=== PATIENT | female | born 1935 | race Caucasian/White ===

== ENCOUNTER 2018-09-03 15:24 | Inpatient (IN) | payer MEDICARE ==
[~2018-09-03 15:24] MED LIST: ELIQUIS 2.5 MG TABLET ONE; NORCO 5/325 MG ONE; TENORMIN 50 MG ONE; TYLENOL EXTRA STRENGTH 500 MG ONE; Vasotec 10 MG ONE
[2018-09-03] MEDS ORDERED: Aplisol ID ONE (16:08)
[2018-09-03 17:26] LABS: ANION GAP 13.5 MEQ/L (5-15); BLOOD UREA NITROGEN 17 mg/dL (7-17); CHLORIDE 103 mmol/L (98-107); Calcium 8.9 mg/dL (8.4-10.2); Carbon Dioxide 27 mmol/L (22-30); Creatinine 1 0.65 mg/dL (0.52-1.04); Glucose 87 mg/dL (74-106); Potassium 3.7 mmol/L (3.5-5.1); SODIUM 140 mmol/L (137-145)
[2018-09-03] MEDS ORDERED: PROVENTIL COMMON CANISTER IH PRN (18:20)
[2018-09-03] MEDS: TYLENOL EXTRA STRENGTH 500 MG PO SCH (19:24)
[2018-09-03] MEDS ORDERED: Vasotec 10 MG ONE (21:24)
[2018-09-03] MEDS: ELIQUIS 2.5 MG TABLET PO SCH (21:50)
[2018-09-03] MEDS: Vasotec 10 MG PO SCH (21:51)
[2018-09-03] MEDS: TENORMIN 50 MG PO SCH (21:51)
[2018-09-03] MEDS: NORCO 5/325 MG PO PRN (22:54)
[2018-09-04] MEDS: TYLENOL EXTRA STRENGTH 500 MG PO SCH ×4 (01:51→17:37)
--- NOTE | 2018-09-04 09:09 | PCM.HP ---
History of Present Illness - Chief Complaint Chief Complaint: DECONDITIONING DT HIP FX History of Present Illness: is a 83 year old female.had fracture right hip s/p ORIF, came for rehab. - Review of Systems Constitutional: No Fever, No Chills Eyes: No Symptoms Ears, Nose, & Throat: No Symptoms Respiratory: No Cough, No Short Of Breath Cardiac: No Chest Pain, No Edema, No Syncope Abdominal/Gastrointestinal: No Abdominal Pain, No Nausea, No Vomiting, No Diarrhea Genitourinary Symptoms: No Dysuria Musculoskeletal: No Back Pain, No Neck Pain Skin: No Rash Neurological: No Dizziness, No Focal Weakness, No Sensory Changes Psychological: No Symptoms Endocrine: No Symptoms Hematologic/Lymphatic: No Symptoms Immunological/Allergic: No Symptoms Medications & Allergies Home Medications: Home Medication List Amlodipine Besylate 5 mg PO BID 09/03/18 [History Confirmed 09/03/18] Apixaban [Eliquis] 5 mg PO BID 09/03/18 [History Confirmed 09/03/18] Aspirin [Aspirin EC] 81 mg PO DAILY 09/03/18 [History Confirmed 09/03/18] Atenolol 50 mg [Tenormin 50 mg] 50 mg PO BID 09/03/18 [History Confirmed 09/03/18] Atorvastatin Calcium 80 mg PO DAILY 09/03/18 [History Confirmed 09/03/18] Enalapril Maleate [Vasotec] 10 mg PO BID 09/03/18 [History Confirmed 09/03/18] Esomeprazole Magnesium [Nexium] 40 mg PO DAILY 09/03/18 [History Confirmed 09/03] Allergies/Adverse Reactions: Allergies Allergy/AdvReac Type Severity Reaction Status Date / Time No Known Drug Allergies Allergy Unverified 09/03/18 18:07 - Past Medical History Neurological History: No Pertinent History Cardiac History: Arrhythmia, Coronary Artery Disease, High Cholesterol, Hypertension Respiratory History: No Pertinent History Endocrine Medical History: No Pertinent History Musculoskelatal History: No Pertinent History Comment: HX OF CORONARY STENT PLACEMENT. RECENT DX OF COLON CA WITH PARTIAL COLECTOMY 07/12/18 FOLLOWED BY [facility]. - Female History Are you now?: No - Past Surgical History Past Surgical History: Yes Musculskeletal Surgical Hx: Orthopedic Surgery Female Surgical History: Hysterectomy Other Surgical History: BOWEL RESECTION, BUNION RIGHT, RIGHT HIP - Social History Smoking Status: Never smoker Alcohol: None - Physical Exam Vital Signs: Vital Signs - 24 hr Temp Pulse Resp BP BP Pulse Ox 09/04/18 08:00 98.1 F 68 18 145/75 95 09/03/18 21:51 90 134/76 09/03/18 21:03 91 H 17 94 L 09/03/18 20:00 98.3 F 90 16 134/76 95 09/03/18 16:14 97.8 F 80 18 134/77 92 L General Appearance: no apparent distress, alert Neurologic Exam: alert, 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, cooperative, normal mood/affect, nml cerebellar function, nml station & gait, sensation nml, No motor deficits Eye Exam: PERRL/EOMI, eyes nml inspection Ears, Nose, Throat Exam: normal ENT inspection, TMs normal, pharynx normal, moist mucous membranes Neck Exam: normal inspection, non-tender, supple, full range of motion Respiratory Exam: normal breath sounds, lungs clear, No respiratory distress Cardiovascular Exam: regular rate/rhythm, normal heart sounds, normal peripheral pulses Gastrointestinal/Abdomen Exam: soft, normal bowel sounds, No tenderness, No mass Back Exam: normal inspection, normal range of motion, No CVA tenderness, No vertebral tenderness Extremity Exam: normal inspection, normal range of motion, pelvis stable Skin Exam: normal color, warm, dry, No rash Lymphatic Exam: No adenopathy Results - Labs Lab/Micro Results: Lab Results-Last 24 Hours 09/03/18 Range/Units 17:11 Sodium 140 (137-145) mmol/L Potassium 3.7 (3.5-5.1) mmol/L Chloride 103 (98-107) mmol/L Carbon Dioxide 27 (22-30) mmol/L Anion Gap 13.5 (5-15) MEQ/L BUN 17 (7-17) mg/dL Creatinine 0.65 (0.52-1.04) mg/dL Estimated GFR > 60.0 ML/MIN Glucose 87 (74-106) mg/dL Calcium 8.9 (8.4-10.2) mg/dL - Other Procedures and Tests Respiratory Therapy 09/03/18 22:05 Respiratory Therapy Assessment DAILY 09/03/18 22:12 Peak Expiratory Flow Rate ONCE Assessment/Plan (1) Hip fracture requiring operative repair Current Visit: Yes Status: Acute Qualifiers: Fracture type: closed Laterality: right Fracture healing: with routine healing Code(s): S72.009A - FRACTURE OF UNSP PART OF NECK OF UNSP FEMUR, INIT
[2018-09-04] MEDS ORDERED: NORVASC 5 MG PO SCH (10:00)
[2018-09-04] MEDS ORDERED: NON-FORMULARY ITEM (Esomeprazole Magnesium [Nexium] 40 MG) PO SCH (10:00)
[2018-09-04] MEDS ORDERED: NON-FORMULARY ITEM (Atorvastatin Calcium [Atorvastatin Calcium] 80 MG) PO SCH (10:00)
[2018-09-04] MEDS: NORCO 5/325 MG PO PRN ×2 (10:19→20:15)
[2018-09-04] MEDS: ZOCOR 20MG PO SCH (10:19)
[2018-09-04] MEDS: Vasotec 10 MG PO SCH ×2 (10:20→21:37)
[2018-09-04] MEDS: ECOTRIN 81 MG PO SCH (10:20)
[2018-09-04] MEDS: TENORMIN 50 MG PO SCH ×2 (10:20→21:37)
[2018-09-04] MEDS: Protonix 40MG Tablet PO SCH (10:20)
[2018-09-04] MEDS: ELIQUIS 2.5 MG TABLET PO SCH ×2 (10:20→21:37)
[2018-09-04] MEDS: Vitamin C 500 MG PO SCH (10:20)
[2018-09-04] MEDS: VITAMIN D PO SCH (10:20)
[2018-09-05] MEDS: TYLENOL EXTRA STRENGTH 500 MG PO SCH ×5 (00:43→23:55)
[2018-09-05] MEDS ORDERED: Venofer 100 MG/5 ML IV SCH (10:00)
[2018-09-05] MEDS: VITAMIN D PO SCH (10:18)
[2018-09-05] MEDS: TENORMIN 50 MG PO SCH ×2 (10:18→23:07)
[2018-09-05] MEDS: ECOTRIN 81 MG PO SCH (10:18)
[2018-09-05] MEDS: Protonix 40MG Tablet PO SCH (10:21)
[2018-09-05] MEDS: ELIQUIS 2.5 MG TABLET PO SCH ×2 (10:21→23:08)
[2018-09-05] MEDS: Vasotec 10 MG PO SCH ×2 (10:21→23:08)
[2018-09-05] MEDS: ZOCOR 20MG PO SCH (10:21)
[2018-09-05] MEDS: Venofer 100 MG/5 ML*** 300 MG in Sodium Chloride 0.9% 250 ML 250 ML IV SCH (10:41)
[2018-09-05] MEDS: Vitamin C 500 MG PO SCH (10:41)
--- NOTE | 2018-09-05 13:38 | PCM.NOTE ---
Date and Time: 09/05/18 6845 Subjective Assessment: doing ok - Review of Systems Constitutional: No Fever, No Chills Eyes: No Symptoms Ears, Nose, & Throat: No Symptoms Respiratory: No Cough, No Short Of Breath Cardiac: No Chest Pain, No Edema, No Syncope Abdominal/Gastrointestinal: No Abdominal Pain, No Nausea, No Vomiting, No Diarrhea Genitourinary Symptoms: No Dysuria Musculoskeletal: No Back Pain, No Neck Pain Skin: No Rash Neurological: No Dizziness, No Focal Weakness, No Sensory Changes Psychological: No Symptoms Endocrine: No Symptoms Hematologic/Lymphatic: No Symptoms Immunological/Allergic: No Symptoms Objective Exam General Appearance: no apparent distress, alert Neurologic Exam: alert, 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, cooperative, normal mood/affect, nml cerebellar function, sensation nml, No motor deficits Skin Exam: normal color, warm, dry Eye Exam: PERRL, EOMI, eyes nml inspection Ears, Nose, Throat Exam: normal ENT inspection, pharynx normal, moist mucous membranes Neck Exam: normal inspection, non-tender, supple, full range of motion Respiratory Exam: normal breath sounds, lungs clear, No respiratory distress Cardiovascular Exam: regular rate/rhythm, normal heart sounds Gastrointestinal/Abdomen Exam: soft, No tenderness, No mass Extremity Exam: normal inspection, normal range of motion Back Exam: normal inspection, normal range of motion, No CVA tenderness, No vertebral tenderness Pelvic Exam: deferred Rectal Exam: deferred OBJECTIVE DATA Vital Signs: Vital Signs - 24 hr Temp Pulse Resp BP BP Pulse Ox 09/05/18 10:18 72 147/72 09/05/18 08:00 98.3 F 88 16 147/72 93 L 09/05/18 07:04 94 L 09/04/18 21:37 86 154/70 09/04/18 20:18 67 18 97 09/04/18 20:10 98.6 F 86 17 154/70 98 Pain Assessment - Last Documented Pain Intensity 7 Pain Scale Used 0-10 Pain Scale Intake and Output: Intake & Output 09/03/18 09/04/18 09/05/18 09/06/18 11:59 11:59 11:59 11:59 Intake Total 600 400 Balance 600 400 Weight 69.5 kg Assessment/Plan (1) Hip fracture requiring operative repair Current Visit: Yes Status: Acute Qualifiers: Fracture type: closed Laterality: right Fracture healing: with routine healing Code(s): S72.009A - FRACTURE OF UNSP PART OF NECK OF UNSP FEMUR, INIT (2) Anemia Current Visit: Yes Status: Acute Qualifiers: Anemia type: iron deficiency Iron deficiency anemia type: inadequate dietary iron intake Qualified Code(s): D50.8 - Other iron deficiency anemias Code(s): D64.9 - ANEMIA, UNSPECIFIED
[2018-09-05 14:03] LABS: Hematocrit 33.9 % (35-47); Hemoglobin 10.3 gm/dl (12.0-16.0)
[2018-09-06] MEDS: TYLENOL EXTRA STRENGTH 500 MG PO SCH ×3 (06:43→17:36)
[2018-09-06 08:22] LABS: Appearance CLEAR (CLEAR); Bilirubin NEGATIVE (NEGATIVE); Blood NEGATIVE Ery/ul (0-5); Glucose NEGATIVE (NEGATIVE); Ketones NEGATIVE (NEGATIVE); Leukocyte Esterase NEGATIVE (NEGATIVE); Mucus SLIGHT /HPF (NEGATIVE); Nitrite NEGATIVE (NEGATIVE); Protein,Urine Dip NEGATIVE (Negative); RBC 0-2 /HPF (0-2); Specific Gravity 1.008 (1.005-1.025); Urobilinogen NEGATIVE mg/dL (0-1)
[2018-09-06] MEDS: VITAMIN D PO SCH (10:08)
[2018-09-06] MEDS: ECOTRIN 81 MG PO SCH (10:08)
[2018-09-06] MEDS: ELIQUIS 2.5 MG TABLET PO SCH ×2 (10:08→21:49)
[2018-09-06] MEDS: Vitamin C 500 MG PO SCH (10:08)
[2018-09-06] MEDS: TENORMIN 50 MG PO SCH ×2 (10:08→21:49)
[2018-09-06] MEDS: Protonix 40MG Tablet PO SCH (10:10)
[2018-09-06] MEDS: Vasotec 10 MG PO SCH ×2 (10:10→21:50)
[2018-09-06] MEDS: ZOCOR 20MG PO SCH (10:10)
[2018-09-07] MEDS: TYLENOL EXTRA STRENGTH 500 MG PO SCH ×4 (01:49→17:28)
[2018-09-07] MEDS: Sodium Chloride 0.9% 10 ML FLUSH Syringe IV SCH ×3 (06:26→22:35)
[2018-09-07] MEDS: Vasotec 10 MG PO SCH ×2 (09:16→22:36)
[2018-09-07] MEDS: ZOCOR 20MG PO SCH (09:16)
[2018-09-07] MEDS: VITAMIN D PO SCH (09:16)
[2018-09-07] MEDS: TENORMIN 50 MG PO SCH ×2 (09:16→22:35)
[2018-09-07] MEDS: ECOTRIN 81 MG PO SCH (09:16)
[2018-09-07] MEDS: Protonix 40MG Tablet PO SCH (09:16)
[2018-09-07] MEDS: Vitamin C 500 MG PO SCH (09:17)
[2018-09-07] MEDS: ELIQUIS 2.5 MG TABLET PO SCH ×2 (09:17→22:34)
--- NOTE | 2018-09-07 13:05 | PCM.NOTE ---
Date and Time: 09/07/18 1305 Subjective Assessment: doing ok - Review of Systems Constitutional: No Fever, No Chills Eyes: No Symptoms Ears, Nose, & Throat: No Symptoms Respiratory: No Cough, No Short Of Breath Cardiac: No Chest Pain, No Edema, No Syncope Abdominal/Gastrointestinal: No Abdominal Pain, No Nausea, No Vomiting, No Diarrhea Genitourinary Symptoms: No Dysuria Musculoskeletal: No Back Pain, No Neck Pain Skin: No Rash Neurological: No Dizziness, No Focal Weakness, No Sensory Changes Psychological: No Symptoms Endocrine: No Symptoms Hematologic/Lymphatic: No Symptoms Immunological/Allergic: No Symptoms Objective Exam General Appearance: no apparent distress, alert Neurologic Exam: alert, 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, cooperative, normal mood/affect, nml cerebellar function, sensation nml, No motor deficits Skin Exam: normal color, warm, dry Eye Exam: PERRL, EOMI, eyes nml inspection Ears, Nose, Throat Exam: normal ENT inspection, pharynx normal, moist mucous membranes Neck Exam: normal inspection, non-tender, supple, full range of motion Respiratory Exam: normal breath sounds, lungs clear, No respiratory distress Cardiovascular Exam: regular rate/rhythm, normal heart sounds Gastrointestinal/Abdomen Exam: soft, No tenderness, No mass Extremity Exam: normal inspection, normal range of motion Back Exam: normal inspection, normal range of motion, No CVA tenderness, No vertebral tenderness Pelvic Exam: deferred Rectal Exam: deferred OBJECTIVE DATA Vital Signs: Vital Signs - 24 hr Temp Pulse Resp BP BP Pulse Ox 09/07/18 09:16 78 148/70 09/07/18 07:27 97.8 F 78 20 148/70 97 09/07/18 07:12 97 09/06/18 21:49 89 161/88 09/06/18 20:15 97.6 F 89 18 161/88 95 09/06/18 19:52 56 L 17 98 Pain Assessment - Last Documented Pain Intensity 6 Pain Scale Used 0-10 Pain Scale Intake and Output: Intake & Output 09/05/18 09/06/18 09/07/18 09/08/18 11:59 11:59 11:59 11:59 Intake Total 400 740 520 Balance 400 740 520 Weight 69.5 kg Assessment/Plan (1) Hip fracture requiring operative repair Current Visit: Yes Status: Acute Qualifiers: Encounter type: subsequent encounter Fracture type: closed Laterality: right Fracture healing: with routine healing Qualified Code(s): S72.001D - Fracture of unspecified part of neck of right femur, subsequent encounter for closed fracture with routine healing Code(s): S72.009A - FRACTURE OF UNSP PART OF NECK OF UNSP FEMUR, INIT (2) Anemia Current Visit: Yes Status: Acute Qualifiers: Anemia type: iron deficiency Iron deficiency anemia type: inadequate dietary iron intake Qualified Code(s): D50.8 - Other iron deficiency anemias Code(s): D64.9 - ANEMIA, UNSPECIFIED
[2018-09-08] MEDS: TYLENOL EXTRA STRENGTH 500 MG PO SCH ×5 (00:23→18:14)
[2018-09-08] MEDS: Sodium Chloride 0.9% 10 ML FLUSH Syringe IV SCH ×3 (06:39→21:22)
[2018-09-08] MEDS: Protonix 40MG Tablet PO SCH (08:32)
[2018-09-08] MEDS: ECOTRIN 81 MG PO SCH (08:32)
[2018-09-08] MEDS: Vasotec 10 MG PO SCH ×2 (08:32→21:19)
[2018-09-08] MEDS: ELIQUIS 2.5 MG TABLET PO SCH ×2 (08:32→21:19)
[2018-09-08] MEDS: ZOCOR 20MG PO SCH (08:33)
[2018-09-08] MEDS: VITAMIN D PO SCH (08:33)
[2018-09-08] MEDS: Vitamin C 500 MG PO SCH (08:33)
[2018-09-08] MEDS: TENORMIN 50 MG PO SCH ×2 (08:34→21:20)
[2018-09-08] MEDS: Aplisol ID ONE (10:30)
[2018-09-09] MEDS: TYLENOL EXTRA STRENGTH 500 MG PO SCH ×5 (01:04→23:20)
[2018-09-09] MEDS: Sodium Chloride 0.9% 10 ML FLUSH Syringe IV SCH ×3 (06:18→22:02)
--- NOTE | 2018-09-09 08:01 | PCM.NOTE ---
Date and Time: 09/09/18 0800 Subjective Assessment: doing better - Review of Systems Constitutional: No Fever, No Chills Eyes: No Symptoms Ears, Nose, & Throat: No Symptoms Respiratory: No Cough, No Short Of Breath Cardiac: No Chest Pain, No Edema, No Syncope Abdominal/Gastrointestinal: No Abdominal Pain, No Nausea, No Vomiting, No Diarrhea Genitourinary Symptoms: No Dysuria Musculoskeletal: No Back Pain, No Neck Pain Skin: No Rash Neurological: No Dizziness, No Focal Weakness, No Sensory Changes Psychological: No Symptoms Endocrine: No Symptoms Hematologic/Lymphatic: No Symptoms Immunological/Allergic: No Symptoms Objective Exam General Appearance: no apparent distress, alert Neurologic Exam: alert, 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, cooperative, normal mood/affect, nml cerebellar function, sensation nml, No motor deficits Skin Exam: normal color, warm, dry Eye Exam: PERRL, EOMI, eyes nml inspection Ears, Nose, Throat Exam: normal ENT inspection, pharynx normal, moist mucous membranes Neck Exam: normal inspection, non-tender, supple, full range of motion Respiratory Exam: normal breath sounds, lungs clear, No respiratory distress Cardiovascular Exam: regular rate/rhythm, normal heart sounds Gastrointestinal/Abdomen Exam: soft, No tenderness, No mass Extremity Exam: normal inspection, normal range of motion Back Exam: normal inspection, normal range of motion, No CVA tenderness, No vertebral tenderness Pelvic Exam: deferred Rectal Exam: deferred OBJECTIVE DATA Vital Signs: Vital Signs - 24 hr Temp Pulse Resp BP BP Pulse Ox 09/09/18 07:50 69 16 96 09/09/18 07:36 98.1 F 81 18 138/68 96 09/08/18 23:29 94 L 09/08/18 23:28 98 H 18 94 L 09/08/18 21:20 80 152/68 09/08/18 20:00 98.0 F 80 17 152/68 97 09/08/18 15:54 93 L 09/08/18 15:52 71 18 93 L 09/08/18 11:21 71 16 93 L 09/08/18 08:34 71 141/72 Pain Assessment - Last Documented Pain Intensity 5 Pain Scale Used 0-10 Pain Scale Intake and Output: Intake & Output 09/06/18 09/07/18 09/08/18 09/09/18 11:59 11:59 11:59 11:59 Intake Total 740 520 240 Output Total 250 Balance 740 520 240 -250 Weight 69.5 kg Assessment/Plan (1) Hip fracture requiring operative repair Current Visit: Yes Status: Acute Qualifiers: Encounter type: subsequent encounter Fracture type: closed Laterality: right Fracture healing: with routine healing Qualified Code(s): S72.001D - Fracture of unspecified part of neck of right femur, subsequent encounter for closed fracture with routine healing Code(s): S72.009A - FRACTURE OF UNSP PART OF NECK OF UNSP FEMUR, INIT (2) Anemia Current Visit: Yes Status: Acute Qualifiers: Anemia type: iron deficiency Iron deficiency anemia type: inadequate dietary iron intake Qualified Code(s): D50.8 - Other iron deficiency anemias Code(s): D64.9 - ANEMIA, UNSPECIFIED
[2018-09-09] MEDS: ZOCOR 20MG PO SCH (10:43)
[2018-09-09] MEDS: Protonix 40MG Tablet PO SCH (10:43)
[2018-09-09] MEDS: VITAMIN D PO SCH (10:43)
[2018-09-09] MEDS: Vitamin C 500 MG PO SCH (10:44)
[2018-09-09] MEDS: Vasotec 10 MG PO SCH ×2 (10:44→22:04)
[2018-09-09] MEDS: ELIQUIS 2.5 MG TABLET PO SCH ×2 (10:44→22:01)
[2018-09-09] MEDS: ECOTRIN 81 MG PO SCH (10:44)
[2018-09-09] MEDS: TENORMIN 50 MG PO SCH ×2 (12:54→22:03)
[2018-09-10] MEDS: TYLENOL EXTRA STRENGTH 500 MG PO SCH ×4 (06:27→22:32)
[2018-09-10] MEDS: Sodium Chloride 0.9% 10 ML FLUSH Syringe IV SCH ×3 (06:28→22:42)
[2018-09-10] MEDS: Vitamin C 500 MG PO SCH (09:17)
[2018-09-10] MEDS: ZOCOR 20MG PO SCH (09:17)
[2018-09-10] MEDS: TENORMIN 50 MG PO SCH ×2 (09:17→22:29)
[2018-09-10] MEDS: ECOTRIN 81 MG PO SCH (09:18)
[2018-09-10] MEDS: ELIQUIS 2.5 MG TABLET PO SCH ×2 (09:18→22:32)
[2018-09-10] MEDS: VITAMIN D PO SCH (09:18)
[2018-09-10] MEDS: Vasotec 10 MG PO SCH ×2 (09:18→22:29)
[2018-09-10] MEDS: Protonix 40MG Tablet PO SCH (09:18)
--- NOTE | 2018-09-10 12:48 | PCM.NOTE ---
Date and Time: 09/10/18 1247 Subjective Assessment: doing ok - Review of Systems Constitutional: No Fever, No Chills Eyes: No Symptoms Ears, Nose, & Throat: No Symptoms Respiratory: No Cough, No Short Of Breath Cardiac: No Chest Pain, No Edema, No Syncope Abdominal/Gastrointestinal: No Abdominal Pain, No Nausea, No Vomiting, No Diarrhea Genitourinary Symptoms: No Dysuria Musculoskeletal: No Back Pain, No Neck Pain Skin: No Rash Neurological: No Dizziness, No Focal Weakness, No Sensory Changes Psychological: No Symptoms Endocrine: No Symptoms Hematologic/Lymphatic: No Symptoms Immunological/Allergic: No Symptoms Objective Exam General Appearance: no apparent distress, alert Neurologic Exam: alert, 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, cooperative, normal mood/affect, nml cerebellar function, sensation nml, No motor deficits Skin Exam: normal color, warm, dry Eye Exam: PERRL, EOMI, eyes nml inspection Ears, Nose, Throat Exam: normal ENT inspection, pharynx normal, moist mucous membranes Neck Exam: normal inspection, non-tender, supple, full range of motion Respiratory Exam: normal breath sounds, lungs clear, No respiratory distress Cardiovascular Exam: regular rate/rhythm, normal heart sounds Gastrointestinal/Abdomen Exam: soft, No tenderness, No mass Extremity Exam: normal inspection, normal range of motion Back Exam: normal inspection, normal range of motion, No CVA tenderness, No vertebral tenderness Pelvic Exam: deferred Rectal Exam: deferred OBJECTIVE DATA Vital Signs: Vital Signs - 24 hr Temp Pulse Resp BP BP Pulse Ox 09/10/18 09:17 75 140/70 09/10/18 07:48 98.1 F 75 18 140/87 96 09/09/18 23:26 92 H 18 97 09/09/18 22:03 81 136/63 09/09/18 20:00 98.6 F 81 18 136/63 94 L 09/09/18 12:54 72 138/63 Pain Assessment - Last Documented Pain Intensity 4 Pain Scale Used 0-10 Pain Scale Intake and Output: Intake & Output 09/08/18 09/09/18 09/10/18 09/11/18 11:59 11:59 11:59 11:59 Intake Total 240 380 300 Output Total 250 Balance 240 130 300 Weight 69.7 kg Assessment/Plan (1) Hip fracture requiring operative repair Current Visit: Yes Status: Acute Qualifiers: Encounter type: subsequent encounter Fracture type: closed Laterality: right Fracture healing: with routine healing Qualified Code(s): S72.001D - Fracture of unspecified part of neck of right femur, subsequent encounter for closed fracture with routine healing Code(s): S72.009A - FRACTURE OF UNSP PART OF NECK OF UNSP FEMUR, INIT (2) Anemia Current Visit: Yes Status: Acute Qualifiers: Anemia type: iron deficiency Iron deficiency anemia type: inadequate dietary iron intake Qualified Code(s): D50.8 - Other iron deficiency anemias Code(s): D64.9 - ANEMIA, UNSPECIFIED
[2018-09-10] MEDS: Aplisol ID ONE (19:00)
[2018-09-10] MEDS: Cyclobenzaprine 10 MG PO SCH (22:29)
[2018-09-11] MEDS: TYLENOL EXTRA STRENGTH 500 MG PO SCH ×4 (06:10→23:47)
[2018-09-11] MEDS: Sodium Chloride 0.9% 10 ML FLUSH Syringe IV SCH ×3 (06:10→23:46)
--- NOTE | 2018-09-11 08:07 | PCM.NOTE ---
Date and Time: 09/11/18805 Subjective Assessment: doing better - Review of Systems Constitutional: No Fever, No Chills Eyes: No Symptoms Ears, Nose, & Throat: No Symptoms Respiratory: No Cough, No Short Of Breath Cardiac: No Chest Pain, No Edema, No Syncope Abdominal/Gastrointestinal: No Abdominal Pain, No Nausea, No Vomiting, No Diarrhea Genitourinary Symptoms: No Dysuria Musculoskeletal: No Back Pain, No Neck Pain Skin: No Rash Neurological: No Dizziness, No Focal Weakness, No Sensory Changes Psychological: No Symptoms Endocrine: No Symptoms Hematologic/Lymphatic: No Symptoms Immunological/Allergic: No Symptoms Objective Exam General Appearance: no apparent distress, alert Neurologic Exam: alert, 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, cooperative, normal mood/affect, nml cerebellar function, sensation nml, No motor deficits Skin Exam: normal color, warm, dry Eye Exam: PERRL, EOMI, eyes nml inspection Ears, Nose, Throat Exam: normal ENT inspection, pharynx normal, moist mucous membranes Neck Exam: normal inspection, non-tender, supple, full range of motion Respiratory Exam: normal breath sounds, lungs clear, No respiratory distress Cardiovascular Exam: regular rate/rhythm, normal heart sounds Gastrointestinal/Abdomen Exam: soft, No tenderness, No mass Extremity Exam: normal inspection, normal range of motion Back Exam: normal inspection, normal range of motion, No CVA tenderness, No vertebral tenderness Pelvic Exam: deferred Rectal Exam: deferred OBJECTIVE DATA Vital Signs: Vital Signs - 24 hr Temp Pulse Resp BP BP Pulse Ox 09/11/18 07:41 97.9 F 81 18 162/88 95 09/10/18 22:29 80 121/80 09/10/18 20:00 98.4 F 80 16 121/80 96 09/10/18 09:17 75 140/70 Pain Assessment - Last Documented Pain Intensity 3 Pain Scale Used 0-10 Pain Scale Intake and Output: Intake & Output 09/08/18 09/09/18 09/10/18 09/11/18 11:59 11:59 11:59 11:59 Intake Total 240 380 300 900 Output Total 250 Balance 240 130 300 900 Weight 69.7 kg Assessment/Plan (1) Hip fracture requiring operative repair Current Visit: Yes Status: Acute Qualifiers: Encounter type: subsequent encounter Fracture type: closed Laterality: right Fracture healing: with routine healing Qualified Code(s): S72.001D - Fracture of unspecified part of neck of right femur, subsequent encounter for closed fracture with routine healing Assessment & Plan: undergoing rehab. stable Code(s): S72.009A - FRACTURE OF UNSP PART OF NECK OF UNSP FEMUR, INIT (2) Anemia Current Visit: Yes Status: Acute Qualifiers: Anemia type: iron deficiency Iron deficiency anemia type: inadequate dietary iron intake Qualified Code(s): D50.8 - Other iron deficiency anemias Code(s): D64.9 - ANEMIA, UNSPECIFIED
[2018-09-11] MEDS: ZOCOR 20MG PO SCH (08:39)
[2018-09-11] MEDS: TENORMIN 50 MG PO SCH ×2 (08:39→23:54)
[2018-09-11] MEDS: Vasotec 10 MG PO SCH ×2 (08:40→23:46)
[2018-09-11] MEDS: Protonix 40MG Tablet PO SCH (08:40)
[2018-09-11] MEDS: ECOTRIN 81 MG PO SCH (08:40)
[2018-09-11] MEDS: VITAMIN D PO SCH (08:40)
[2018-09-11] MEDS: ELIQUIS 2.5 MG TABLET PO SCH ×2 (08:40→23:45)
[2018-09-11] MEDS: Vitamin C 500 MG PO SCH (08:40)
[2018-09-11] MEDS: Cyclobenzaprine 10 MG PO SCH (23:45)
[2018-09-12] MEDS: Cyclobenzaprine 10 MG PO SCH ×2 (00:04→21:32)
[2018-09-12] MEDS: Sodium Chloride 0.9% 10 ML FLUSH Syringe IV SCH ×2 (06:53→15:15)
[2018-09-12] MEDS: TYLENOL EXTRA STRENGTH 500 MG PO SCH ×4 (06:53→23:08)
[2018-09-12] MEDS: Protonix 40MG Tablet PO SCH (10:14)
[2018-09-12] MEDS: Vasotec 10 MG PO SCH ×2 (10:14→23:08)
[2018-09-12] MEDS: TENORMIN 50 MG PO SCH ×2 (10:14→23:07)
[2018-09-12] MEDS: Vitamin C 500 MG PO SCH (10:14)
[2018-09-12] MEDS: ELIQUIS 2.5 MG TABLET PO SCH ×2 (10:15→23:07)
[2018-09-12] MEDS: VITAMIN D PO SCH (10:15)
[2018-09-12] MEDS: ECOTRIN 81 MG PO SCH (10:15)
[2018-09-12] MEDS: ZOCOR 20MG PO SCH (10:15)
[2018-09-12] MEDS: Venofer 100 MG/5 ML*** 300 MG in Sodium Chloride 0.9% 250 ML 250 ML IV SCH (11:43)
--- NOTE | 2018-09-12 13:20 | PCM.NOTE ---
Date and Time: 09/12/18 1320 Subjective Assessment: doing better - Review of Systems Constitutional: No Fever, No Chills Eyes: No Symptoms Ears, Nose, & Throat: No Symptoms Respiratory: No Cough, No Short Of Breath Cardiac: No Chest Pain, No Edema, No Syncope Abdominal/Gastrointestinal: No Abdominal Pain, No Nausea, No Vomiting, No Diarrhea Genitourinary Symptoms: No Dysuria Musculoskeletal: No Back Pain, No Neck Pain Skin: No Rash Neurological: No Dizziness, No Focal Weakness, No Sensory Changes Psychological: No Symptoms Endocrine: No Symptoms Hematologic/Lymphatic: No Symptoms Immunological/Allergic: No Symptoms Objective Exam General Appearance: no apparent distress, alert Neurologic Exam: alert, 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, cooperative, normal mood/affect, nml cerebellar function, sensation nml, No motor deficits Skin Exam: normal color, warm, dry Eye Exam: PERRL, EOMI, eyes nml inspection Ears, Nose, Throat Exam: normal ENT inspection, pharynx normal, moist mucous membranes Neck Exam: normal inspection, non-tender, supple, full range of motion Respiratory Exam: normal breath sounds, lungs clear, No respiratory distress Cardiovascular Exam: regular rate/rhythm, normal heart sounds Gastrointestinal/Abdomen Exam: soft, No tenderness, No mass Extremity Exam: normal inspection, normal range of motion Back Exam: normal inspection, normal range of motion, No CVA tenderness, No vertebral tenderness Pelvic Exam: deferred Rectal Exam: deferred OBJECTIVE DATA Vital Signs: Vital Signs - 24 hr Temp Pulse Resp BP BP Pulse Ox 09/12/18 10:14 82 164/82 09/12/18 07:30 97.8 F 82 22 164/82 82 L 09/11/18 19:47 98.6 F 80 18 154/77 95 Pain Assessment - Last Documented Pain Intensity 5 Pain Scale Used 0-10 Pain Scale Intake and Output: Intake & Output 09/10/18 09/11/18 09/12/18 09/13/18 11:59 11:59 11:59 11:59 Intake Total 300 1140 500 Balance 300 1140 500 Weight 69.7 kg Multi-Disciplinary Progress Notes: Multi-Disciplinary Progress Notes 09/12/18 12:58 Nutrition Note by Elizabeth Davis F/u Note: Note regular diet with ensure continues mostly 75% po intake; ave 60%. Wt 09/09 69.7-stable. No new labs. Con't to recommend cardiac diet with ensure. Meeting goals thus far--goals continue. Will monitor and f/u prn. HARSHIL Maynard Initialized on 09/12/18 12:58 - END OF NOTE Assessment/Plan (1) Hip fracture requiring operative repair Current Visit: Yes Status: Acute Qualifiers: Encounter type: subsequent encounter Fracture type: closed Laterality: right Fracture healing: with routine healing Qualified Code(s): S72.001D - Fracture of unspecified part of neck of right femur, subsequent encounter for closed fracture with routine healing Code(s): S72.009A - FRACTURE OF UNSP PART OF NECK OF UNSP FEMUR, INIT (2) Anemia Current Visit: Yes Status: Acute Qualifiers: Anemia type: iron deficiency Iron deficiency anemia type: inadequate dietary iron intake Qualified Code(s): D50.8 - Other iron deficiency anemias Code(s): D64.9 - ANEMIA, UNSPECIFIED
[2018-09-13] MEDS: TYLENOL EXTRA STRENGTH 500 MG PO SCH ×4 (05:25→23:12)
--- NOTE | 2018-09-13 12:05 | PCM.NOTE ---
Date and Time: 09/13/18 1204 Subjective Assessment: doing better - Review of Systems Constitutional: No Fever, No Chills Eyes: No Symptoms Ears, Nose, & Throat: No Symptoms Respiratory: No Cough, No Short Of Breath Cardiac: No Chest Pain, No Edema, No Syncope Abdominal/Gastrointestinal: No Abdominal Pain, No Nausea, No Vomiting, No Diarrhea Genitourinary Symptoms: No Dysuria Musculoskeletal: No Back Pain, No Neck Pain Skin: No Rash Neurological: No Dizziness, No Focal Weakness, No Sensory Changes Psychological: No Symptoms Endocrine: No Symptoms Hematologic/Lymphatic: No Symptoms Immunological/Allergic: No Symptoms Objective Exam General Appearance: no apparent distress, alert Neurologic Exam: alert, 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, cooperative, normal mood/affect, nml cerebellar function, sensation nml, No motor deficits Skin Exam: normal color, warm, dry Eye Exam: PERRL, EOMI, eyes nml inspection Ears, Nose, Throat Exam: normal ENT inspection, pharynx normal, moist mucous membranes Neck Exam: normal inspection, non-tender, supple, full range of motion Respiratory Exam: normal breath sounds, lungs clear, No respiratory distress Cardiovascular Exam: regular rate/rhythm, normal heart sounds Gastrointestinal/Abdomen Exam: soft, No tenderness, No mass Extremity Exam: normal inspection, normal range of motion Back Exam: normal inspection, normal range of motion, No CVA tenderness, No vertebral tenderness Pelvic Exam: deferred Rectal Exam: deferred OBJECTIVE DATA Vital Signs: Vital Signs - 24 hr Temp Pulse Resp BP BP Pulse Ox 09/13/18 08:00 98.4 F 51 L 17 138/74 95 09/12/18 23:07 77 147/69 09/12/18 20:00 98.2 F 77 16 147/69 92 L Pain Assessment - Last Documented Pain Intensity 4 Pain Scale Used 0-10 Pain Scale Intake and Output: Intake & Output 09/11/18 09/12/18 09/13/18 09/14/18 11:59 11:59 11:59 11:59 Intake Total 1140 500 480 Balance 1140 500 480 Multi-Disciplinary Progress Notes: Multi-Disciplinary Progress Notes 09/12/18 16:24 Case Management Note by Chanel Carmona PROVIDED PT WITH INFORMATION ON VARIOUS MEDICAL ALERT SYSTEMS. Initialized on 09/12/18 16:24 - END OF NOTE 09/12/18 12:58 Nutrition Note by [place],Elizabeth Lindsey F/u Note: Note regular diet with ensure continues mostly 75% po intake; ave 60%. Wt 5/5 69.7-stable. No new labs. Con't to recommend cardiac diet with ensure. Meeting goals thus far--goals continue. Will monitor and f/u prn. HARSHIL Maynard Initialized on 09/12/18 12:58 - END OF NOTE Assessment/Plan (1) Hip fracture requiring operative repair Current Visit: Yes Status: Acute Qualifiers: Encounter type: subsequent encounter Fracture type: closed Laterality: right Fracture healing: with routine healing Qualified Code(s): S72.001D - Fracture of unspecified part of neck of right femur, subsequent encounter for closed fracture with routine healing Code(s): S72.009A - FRACTURE OF UNSP PART OF NECK OF UNSP FEMUR, INIT (2) Anemia Current Visit: Yes Status: Acute Qualifiers: Anemia type: iron deficiency Iron deficiency anemia type: inadequate dietary iron intake Qualified Code(s): D50.8 - Other iron deficiency anemias Code(s): D64.9 - ANEMIA, UNSPECIFIED
[2018-09-13] MEDS: Vasotec 10 MG PO SCH ×2 (15:28→21:59)
[2018-09-13] MEDS: Vitamin C 500 MG PO SCH (15:29)
[2018-09-13] MEDS: VITAMIN D PO SCH (15:29)
[2018-09-13] MEDS: Protonix 40MG Tablet PO SCH (15:29)
[2018-09-13] MEDS: ECOTRIN 81 MG PO SCH (15:29)
[2018-09-13] MEDS: ELIQUIS 2.5 MG TABLET PO SCH ×2 (15:29→21:59)
[2018-09-13] MEDS: TENORMIN 50 MG PO SCH ×2 (15:30→21:58)
[2018-09-13] MEDS: ZOCOR 20MG PO SCH (15:31)
[2018-09-13] MEDS: Cyclobenzaprine 10 MG PO SCH (21:59)
[2018-09-14] MEDS: TYLENOL EXTRA STRENGTH 500 MG PO SCH ×3 (05:09→17:29)
[2018-09-14 07:42] VITALS: BP 161/84; PULSE 73; O2SAT 95
[2018-09-14] MEDS: Protonix 40MG Tablet PO SCH (09:41)
[2018-09-14] MEDS: ECOTRIN 81 MG PO SCH (09:41)
[2018-09-14] MEDS: ELIQUIS 2.5 MG TABLET PO SCH (09:41)
[2018-09-14] MEDS: TENORMIN 50 MG PO SCH (09:41)
[2018-09-14] MEDS: Vasotec 10 MG PO SCH (09:42)
[2018-09-14] MEDS: Vitamin C 500 MG PO SCH (09:42)
[2018-09-14] MEDS: ZOCOR 20MG PO SCH (09:43)
[2018-09-14] MEDS: VITAMIN D PO SCH (09:43)
--- NOTE | 2018-09-14 13:10 | PCM.DS ---
Discharge Summary Date of Admission: 09/03/18 15:34 Admitting Physician: BETTY PRAKASH Primary Care Provider: BETTY PRAKASH Allergies Allergies No Known Drug Allergies Allergy (Unverified 09/03/18 18:07) Hospital Summary - Hospital Course Hospital Course: Chief Complaint Diagnosis DECONDITIONING DT HIP FX Allergies Allergy/AdvReac Type Severity Reaction Status Date / Time No Known Drug Allergies Allergy Unverified 09/03/18 18:07 Vital Signs (Last 24 hours) Temp Pulse Resp BP BP Pulse Ox 09/14/18 09:41 73 161/84 09/14/18 07:41 97.9 F 73 18 161/84 95 09/13/18 21:58 80 151/83 09/13/18 20:00 97.8 F 80 20 151/83 98 09/13/18 15:30 51 L 138/74 Home Medications Medication Instructions Recorded Confirmed Last Taken Type Amlodipine Besylate 5 mg PO BID 09/03/18 09/03/18 Unknown History Apixaban [Eliquis] 5 mg PO BID 09/03/18 09/03/18 Unknown History Aspirin [Aspirin EC] 81 mg PO DAILY 09/03/18 09/03/18 Unknown History Atenolol 50 mg [Tenormin 50 50 mg PO BID 09/03/18 09/03/18 Unknown History mg] Atorvastatin Calcium 80 mg PO DAILY 09/03/18 09/03/18 Unknown History Enalapril Maleate [Vasotec] 10 mg PO BID 09/03/18 09/03/18 Unknown History Esomeprazole Magnesium [Nexium] 40 mg PO DAILY 09/03/18 09/03/18 Unknown History Current Medications Generic Name Dose Route Start Last Admin Trade Name Freq PRN Reason Stop Dose Admin Acetaminophen 1,000 mg 09/08/18 08:57 09/14/18 11:48 Tylenol Extra Strength 500 Mg PO 10/03/18 18:29 1,000 mg Q6HT ALEJANDRA Administration Albuterol Sulfate 2 puff 09/03/18 18:20 Proventil Common Canister IH 10/03/18 18:19 Q4HPRN PRN SHORTNESS OF BREATH Apixaban 5 mg 09/03/18 22:00 09/14/18 09:41 Eliquis 2.5 Mg Tablet PO 10/03/18 21:59 5 mg BID ALEJANDRA Administration Ascorbic Acid 500 mg 09/04/18 10:00 09/14/18 09:42 Vitamin C 500 Mg PO 10/04/18 09:59 500 mg DAILY ALEJANDRA Administration Aspirin 81 mg 09/04/18 10:00 09/14/18 09:41 Ecotrin 81 Mg PO 10/04/18 09:59 81 mg DAILY ALEJANDRA Administration Atenolol 50 mg 09/03/18 22:00 09/14/18 09:41 Tenormin 50 Mg PO 10/03/18 21:59 50 mg BID ALEJANDRA Administration Cholecalciferol 1,000 unit 09/04/18 10:00 09/14/18 09:43 Vitamin D PO 10/04/18 09:59 1,000 unit DAILY ALEJANDRA Administration Cyclobenzaprine HCl 10 mg 09/10/18 22:00 09/13/18 21:59 Cyclobenzaprine 10 Mg PO 10/10/18 21:59 10 mg HS ALEJANDRA Administration Enalapril Maleate 10 mg 09/03/18 22:00 09/14/18 09:42 Vasotec 10 Mg PO 10/03/18 21:59 10 mg BID ALEJANDRA Administration Iron Sucrose 300 mg/ Sodium 265 mls @ 176.667 mls/hr 09/05/18 10:00 09/12/18 11:43 Chloride IV 10/05/18 09:59 176.667 mls/hr Q7D ALEJANDRA Administration Pantoprazole Sodium 40 mg 09/04/18 10:00 09/14/18 09:41 Protonix 40mg Tablet PO 10/04/18 09:59 40 mg DAILY ALEJANDRA Administration Simvastatin 40 mg 09/04/18 10:00 09/14/18 09:43 Zocor 20mg PO 10/04/18 09:59 40 mg DAILY ALEJANDRA Administration Discontinued Medications Generic Name Dose Route Start Last Admin Trade Name Freq PRN Reason Stop Dose Admin Acetaminophen 500 mg 09/03/18 18:30 09/04/18 06:21 Tylenol Extra Strength 500 Mg PO 10/03/18 18:29 500 mg Q6H ALEJANDRA Administration Acetaminophen 500 mg 09/04/18 12:00 09/08/18 06:37 Tylenol Extra Strength 500 Mg PO 10/03/18 18:29 500 mg Q6HT [facility] Administration Hydrocodone Bitart/Acetaminophen 1 tab 09/03/18 18:50 09/04/18 20:15 Buras 5/325 Mg PO 09/08/18 18:49 1 tab QID PRN PRN Administration PAIN Amlodipine Besylate 2.5 mg 09/04/18 10:00 Norvasc 5 Mg PO 10/04/18 09:59 QAM ALEJANDRA Enalapril Maleate Confirm 09/03/18 21:24 Vasotec 10 Mg Administered 09/03/18 21:25 Dose 10 mg .ROUTE .STK-MED ONE Sodium Chloride 10 ml 09/07/18 06:00 09/12/18 15:15 Sodium Chloride 0.9% 10 Ml Flush Syringe IV 10/07/18 05:59 10 ml Q8HT ALEJANDRA Administration Tuberculin PPD 5 unit 09/03/18 16:08 09/03/18 17:59 Aplisol ID 09/03/18 16:09 5 unit ONCE ONE Administration Tuberculin PPD 5 unit 09/08/18 09:45 09/10/18 19:00 Aplisol ID 09/08/18 09:46 5 unit ONCE ONE Administration Intake & Output (Last 24 hours) 09/12/18 09/13/18 09/14/18 09/15/18 11:59 11:59 11:59 11:59 Intake Total 500 480 550 Balance 500 480 550 Orders (Last 24 hours) Category Date Time Status [facility] Q14D Lab 09/17/18 16:15 Ordered - Vitals & Intake/Output Vital Signs: Vital Signs Temperature 97.9 F 09/14/18 07:41 Pulse Rate 73 09/14/18 09:41 Respiratory Rate 18 09/14/18 07:41 Blood Pressure 161/84 09/14/18 09:41 O2 Sat by Pulse Oximetry 95 09/14/18 07:41 Intake & Output: Intake & Output 09/12/18 09/13/18 09/14/18 09/15/18 11:59 11:59 11:59 11:59 Intake Total 500 480 550 Balance 500 480 550 - Lab Result Diagrams: 09/05/18 13:47 09/03/18 17:11 - Procedures and Test Procedures and Tests throughout Hospitalization: Therapy Orders & Screens 09/03/18 15:34 PT Eval & Treat ( Order) ROUTINE Reason for Eval:: HIP REPAIR Diagnosis: DECONDITIONING R/T HIP REPAIR 09/03/18 22:05 Respiratory Therapy Assessment DAILY Comment: Diagnosis: DECONDITIONING DT HIP FX 09/03/18 22:12 Peak Expiratory Flow Rate ONCE Comment: Reason For Exam: Diagnosis: DECONDITIONING DT HIP FX Discharge Exam General Appearance: no apparent distress, alert Neurologic Exam: alert, 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, cooperative, normal mood/affect, nml cerebellar function, sensation nml, No motor deficits Skin Exam: normal color, warm, dry Eye Exam: PERRL, EOMI, eyes nml inspection Ears, Nose, Throat Exam: normal ENT inspection, pharynx normal, moist mucous membranes Neck Exam: normal inspection, non-tender, supple, full range of motion Respiratory Exam: normal breath sounds, lungs clear, No respiratory distress Cardiovascular Exam: regular rate/rhythm, normal heart sounds Gastrointestinal/Abdomen Exam: soft, No tenderness, No mass Extremity Exam: normal inspection, normal range of motion Back Exam: normal inspection, normal range of motion, No CVA tenderness, No vertebral tenderness Pelvic Exam: deferred Rectal Exam: deferred Final Diagnosis/Problem List - Final Discharge Diagnosis/Problem (1) Hip fracture requiring operative repair Current Visit: Yes Status: Acute Assessment & Plan: Chief Complaint Diagnosis DECONDITIONING DT HIP FX Allergies Allergy/AdvReac Type Severity Reaction Status Date / Time No Known Drug Allergies Allergy Unverified 09/03/18 18:07 Vital Signs (Last 24 hours) Temp Pulse Resp BP BP Pulse Ox 09/14/18 09:41 73 161/84 09/14/18 07:41 97.9 F 73 18 161/84 95 09/13/18 21:58 80 151/83 09/13/18 20:00 97.8 F 80 20 151/83 98 09/13/18 15:30 51 L 138/74 Home Medications Medication Instructions Recorded Confirmed Last Taken Type Amlodipine Besylate 5 mg PO BID 09/03/18 09/03/18 Unknown History Apixaban [Eliquis] 5 mg PO BID 09/03/18 09/03/18 Unknown History Aspirin [Aspirin EC] 81 mg PO DAILY 09/03/18 09/03/18 Unknown History Atenolol 50 mg [Tenormin 50 50 mg PO BID 09/03/18 09/03/18 Unknown History mg] Atorvastatin Calcium 80 mg PO DAILY 09/03/18 09/03/18 Unknown History Enalapril Maleate [Vasotec] 10 mg PO BID 09/03/18 09/03/18 Unknown History Esomeprazole Magnesium [Nexium] 40 mg PO DAILY 09/03/18 09/03/18 Unknown History Current Medications Generic Name Dose Route Start Last Admin Trade Name Freq PRN Reason Stop Dose Admin Acetaminophen 1,000 mg 09/08/18 08:57 09/14/18 11:48 Tylenol Extra Strength 500 Mg PO 10/03/18 18:29 1,000 mg Q6HT ALEJANDRA Administration Albuterol Sulfate 2 puff 09/03/18 18:20 Proventil Common Canister IH 10/03/18 18:19 Q4HPRN PRN SHORTNESS OF BREATH Apixaban 5 mg 09/03/18 22:00 09/14/18 09:41 Eliquis 2.5 Mg Tablet PO 10/03/18 21:59 5 mg BID ALEJANDRA Administration Ascorbic Acid 500 mg 09/04/18 10:00 09/14/18 09:42 Vitamin C 500 Mg PO 10/04/18 09:59 500 mg DAILY ALEJANDRA Administration Aspirin 81 mg 09/04/18 10:00 09/14/18 09:41 Ecotrin 81 Mg PO 10/04/18 09:59 81 mg DAILY ALEJANDRA Administration Atenolol 50 mg 09/03/18 22:00 09/14/18 09:41 Tenormin 50 Mg PO 10/03/18 21:59 50 mg BID ALEJANDRA Administration Cholecalciferol 1,000 unit 09/04/18 10:00 09/14/18 09:43 Vitamin D PO 10/04/18 09:59 1,000 unit DAILY ALEJANDRA Administration Cyclobenzaprine HCl 10 mg 09/10/18 22:00 09/13/18 21:59 Cyclobenzaprine 10 Mg PO 10/10/18 21:59 10 mg HS ALEJANDRA Administration Enalapril Maleate 10 mg 09/03/18 22:00 09/14/18 09:42 Vasotec 10 Mg PO 10/03/18 21:59 10 mg BID ALEJANDRA Administration Iron Sucrose 300 mg/ Sodium 265 mls @ 176.667 mls/hr 09/05/18 10:00 09/12/18 11:43 Chloride IV 10/05/18 09:59 176.667 mls/hr Q7D ALEJANDRA Administration Pantoprazole Sodium 40 mg 09/04/18 10:00 09/14/18 09:41 Protonix 40mg Tablet PO 10/04/18 09:59 40 mg DAILY ALEJANDRA Administration Simvastatin 40 mg 09/04/18 10:00 09/14/18 09:43 Zocor 20mg PO 10/04/18 09:59 40 mg DAILY ALEJANDRA Administration Discontinued Medications Generic Name Dose Route Start Last Admin Trade Name Freq PRN Reason Stop Dose Admin Acetaminophen 500 mg 09/03/18 18:30 09/04/18 06:21 Tylenol Extra Strength 500 Mg PO 10/03/18 18:29 500 mg Q6H ALEJANDRA Administration Acetaminophen 500 mg 09/04/18 12:00 09/08/18 06:37 Tylenol Extra Strength 500 Mg PO 10/03/18 18:29 500 mg Q6HT ALEJANDRA Administration Hydrocodone Bitart/Acetaminophen 1 tab 09/03/18 18:50 09/04/18 20:15 Buras 5/325 Mg PO 09/08/18 18:49 1 tab QID PRN PRN Administration PAIN Amlodipine Besylate 2.5 mg 09/04/18 10:00 Norvasc 5 Mg PO 10/04/18 09:59 QAM ALEJANDRA Enalapril Maleate Confirm 09/03/18 21:24 Vasotec 10 Mg Administered 09/03/18 21:25 Dose 10 mg .ROUTE .STK-MED ONE Sodium Chloride 10 ml 09/07/18 06:00 09/12/18 15:15 Sodium Chloride 0.9% 10 Ml Flush Syringe IV 10/07/18 05:59 10 ml Q8HT ALEJANDRA Administration Tuberculin PPD 5 unit 09/03/18 16:08 09/03/18 17:59 Aplisol ID 09/03/18 16:09 5 unit ONCE ONE Administration Tuberculin PPD 5 unit 09/08/18 09:45 09/10/18 19:00 Aplisol ID 09/08/18 09:46 5 unit ONCE ONE Administration Intake & Output (Last 24 hours) 09/12/18 09/13/18 09/14/18 09/15/18 11:59 11:59 11:59 11:59 Intake Total 500 480 550 Balance 500 480 550 Orders (Last 24 hours) Category Date Time Status [facility] Q14D Lab 09/17/18 16:15 Ordered Code(s): S72.009A - FRACTURE OF UNSP PART OF NECK OF UNSP FEMUR, INIT (2) Anemia Current Visit: Yes Status: Acute Code(s): D64.9 - ANEMIA, UNSPECIFIED - Discharge Discharge Date: 09/14/18 Disposition: Home, Self-Care Condition: Stable Prescriptions: Continue Amlodipine Besylate 5 mg PO BID Apixaban [Eliquis] 5 mg PO BID Aspirin [Aspirin EC] 81 mg PO DAILY Atenolol 50 mg [Tenormin 50 mg] 50 mg PO BID Atorvastatin Calcium 80 mg PO DAILY Enalapril Maleate [Vasotec] 10 mg PO BID Esomeprazole Magnesium [Nexium] 40 mg PO DAILY Follow up with: VALERIY ARREDONDO [ACTIVE STAFF] - 09/13/18 10:00 am BETTY PRAKASH MD [Primary Care Provider] - 1 Week
== END 2018-09-14 17:50 | disposition home or self-care (01) | DRG 561 ==
LOC: MED SURG 15:34 → UNDOADMIN 15:34
PROVIDERS: ADMIT General Practice; ATTEND General Practice
DX: S72.001D Fracture of unspecified part of neck of right femur, subsequent encounter for closed fracture with routine healing (principal); D64.9 Anemia, unspecified; Z79.01 Long term (current) use of anticoagulants; Z79.899 Other long term (current) drug therapy
CPT/HCPCS: 36415; 80048; 81001; 85014; 85018; 94760; J1756; 97110-GP; A9270-GY

== ENCOUNTER 2018-11-05 09:29 | Day surgery (SDC) | payer MEDICARE ==
--- NOTE | 2018-11-05 09:17 | HP ---
DATE OF SURGERY: 11/05/2018 HISTORY OF PRESENT ILLNESS: The patient is an 83 year-old had assisted partial colectomy for cancer in the past. She had a PET scan that showed some changes down in the rectal area. She is in need of colonoscopy for further evaluation. She is in need of rectal ultrasound as well and this was going to be arranged but she prefers to go ahead and proceed with the colonoscopy for further evaluation at this time. PAST MEDICAL HISTORY: Atrial fibrillation, heart disease, anemia, hypertension. She had a hip fracture which is recovering from recently. PAST SURGICAL HISTORY: Hysterectomy. Assisted partial colectomy in the past. Colonoscopy in the past. MEDICATIONS: Eliquis, Atenolol, Enalapril, aspirin, Nexium, Lipitor, B12, vitamin C. ALLERGIES: NKDA. FAMILY HISTORY: Leukemia. SOCIAL HISTORY: No smoking or alcohol abuse. REVIEW OF SYSTEMS: Fourteen systems reviewed per admission assessment. No chest pain or palpitations other systems negative or noncontributory as above and per preadmission questionnaire. PHYSICAL EXAMINATION: GENERAL: No acute distress. HEENT: Sclerae nonicteric. NECK: No JVD. CHEST: Equal excursion, nonlabored breathing. CVS: Regular rate and rhythm. ABDOMEN: Soft. No peritoneal signs. EXTREMITIES: No significant edema. NEURO: Alert, moving extremities symmetrically. No gross motor deficits noted. RECTAL: Deferred timed to endoscopy exam. IMPRESSION: Abnormal PET scan anorectal area. She has prior history of right colectomy for colon cancer. She is in need of follow up evaluation. If this does not show anything obvious she may need rectal ultrasound for further evaluation in the future. She understands general risk of bleeding or infection, risk of bowel prep, risk of sedation but not limited to, risk of bowel injury or perforation possibly requiring open procedure but not limited to, possible inability to diagnose the etiology of what is showing up on the PET scan. She and her family understand and agrees to the planned procedure and will proceed with outpatient colonoscopy under MAC anesthesia.
[~2018-11-05 09:29] MED LIST changes: -ELIQUIS 2.5 MG TABLET ONE; +Lactated Ringers 1,000 ML IV SCH; -NORCO 5/325 MG ONE; -TENORMIN 50 MG ONE; -TYLENOL EXTRA STRENGTH 500 MG ONE; -Vasotec 10 MG ONE
[2018-11-05] MEDS ORDERED: Lactated Ringers 1,000 ML IV ONE (09:43)
[2018-11-05] MEDS ORDERED: DIPRIVAN 200 MG/20 ML IV ONE (11:42)
[2018-11-05] MEDS ORDERED: Ketamine HCl 50 MG/ML ONE (11:43)
[2018-11-05 13:11] VITALS: BP 123/73; PULSE 77; O2SAT 99
--- NOTE | 2018-11-05 14:00 | OP ---
SURGERY DATE/TIME: 11/05/2018 1149 PREOPERATIVE DIAGNOSES: 1) History of right colon cancer status post right colectomy. 2) History of positive nodes. 3) History of abnormal uptake anorectal junction on PET scan, need for follow up colonoscopy. POSTOPERATIVE DIAGNOSES: 1) Small raised lesion versus hyperplastic lesion descending colon and sigmoid. 2) Patent anastomotic site. No evidence of gross recurrence at ileocolonic anastomosis. 3) Internal and external hemorrhoids. No visible suspicious mass, no palpable suspicious mass anorectal junction. Internal and external hemorrhoids in this area by visualization. PROCEDURES: 1) Colonoscopy to terminal ileum. 2) Random cold biopsies ileocolonic anastomotic site. 3) Hot biopsy normal small raised lesion versus hyperplastic lesion descending colon and sigmoid colon. 4) Random cold biopsies just inside the rectal side of anorectal junction. SURGEON: Dr. Juventino Gillis. ANESTHESIA: MAC. ESTIMATED BLOOD LOSS: Minimal. INDICATIONS: As noted above. Risks and benefits explained in detail but not limited to and consent obtained. DESCRIPTION OF PROCEDURE AND FINDINGS: The patient is taken to the endoscopy room. MAC anesthesia introduced. After official time out and no disagreement with planned procedure, video colonoscope inserted and passed up through the tortuous sigmoid, descending and transverse colon. Anastomotic site was patent. Cold biopsy taken of ileocolonic anastomotic edge. No evidence of gross recurrence. The scope slowly and carefully withdrawn. Prep overall fair. Small raised area descending colon removed with hot biopsy forceps. Another in the sigmoid area vague, question hyperplastic area. No signs of any large polyps, masses or obstructing lesions. Scope pulled back to the rectum. On retroflex she appeared to have some vague 2 to 3 internal and external hemorrhoids. There was no visible gross abnormal looking mass. Scope is straightened. Random cold biopsies taken on the rectal side of the anorectal margin given her abnormal PET scan. This seemed to be internal and external hemorrhoids. No obvious unusual looking mass at this point. There were no other Pap smear sticks to send in other surface scrapping but again no visible or digitally palpable mass demonstrated. Question whether the PET scan did show increased uptake of her hemorrhoid activity. Otherwise scope withdrawn. Patient tolerated the procedure well. Findings discussed with family out in the waiting area.
== END 2018-11-05 13:35 | disposition home or self-care (01) ==
LOC: SDC 09:29
PROVIDERS: ATTEND Surgery
DX: Z08 Encounter for follow-up examination after completed treatment for malignant neoplasm (principal); Z85.038 Personal history of other malignant neoplasm of large intestine; K63.5 Polyp of colon; K64.4 Residual hemorrhoidal skin tags; K64.8 Other hemorrhoids; I48.91 Unspecified atrial fibrillation; I11.9 Hypertensive heart disease without heart failure; Z79.899 Other long term (current) drug therapy; Z79.01 Long term (current) use of anticoagulants
CPT/HCPCS: 88305; 99100; J2704

== ENCOUNTER 2018-12-10 12:58 | Day surgery (SDC) | payer MEDICARE ==
--- NOTE | 2018-12-10 07:47 | HP ---
DATE OF SURGERY: 12/10/2018 HISTORY OF PRESENT ILLNESS: A patient with history of colon cancer. She is undergoing treatments at this time. She is in need of Port-A-Cath for long-term IV access. PAST MEDICAL HISTORY: Atrial fibrillation, heart disease, anemia, hypertension. She had a hip fracture when she was recovering from colon surgery in the past. PAST SURGICAL HISTORY: Hip surgery. Hysterectomy. Laparoscopic assisted partial colectomy in the past. Colonoscopy in the past. MEDICATIONS: Enalapril, atenolol, Eliquis, aspirin, Nexium, Lipitor, B12, Zyrtec. ALLERGIES: NKDA. FAMILY HISTORY: Heart disease, leukemia. SOCIAL HISTORY: No smoking or alcohol abuse. REVIEW OF SYSTEMS: Fourteen systems reviewed. No chest pain or palpitations other systems negative or noncontributory as above and per preadmission questionnaire. PHYSICAL EXAMINATION: GENERAL: No acute distress. HEENT: Sclerae nonicteric. NECK: No JVD. CHEST: Equal excursion, nonlabored breathing. CVS: Regular rate and rhythm. ABDOMEN: Soft. EXTREMITIES: No significant edema. NEURO: Alert, oriented, moving extremities symmetrically. No gross motor deficits noted. IMPRESSION: Colon cancer, needs Port-A-Cath for long-term IV access for treatments. Risks and benefits explained in detail including but not limited to bleeding or infection, risk of thrombosis or pneumothorax, risk of hematoma or seroma formation, risk of port or catheter fracture or failure possibly requiring removal or replacement, risk of port infection possibly requiring removal, small risk of arterial injury, small risk of major venous tear, general risk of aches, pains and anesthesia but not limited to. She agrees to the planned procedure, will proceed with Port-A-Cath placement as an outpatient.
[~2018-12-10 12:58] MED LIST changes: +CEFAZOLIN 2 GM-D5W BAG** 2 GM/50 ML ML IV ONE; +DIPRIVAN 200 MG/20 ML IV ONE; +Hydromorphone 1 mg/ml Ampule IV ONE; +Ketamine HCl 50 MG/ML ONE; +Lactated Ringers 1,000 ML IV ONE; -Lactated Ringers 1,000 ML IV SCH; +XYLOCAINE 1% HCL 20 ML MDV ONE
[2018-12-10] MEDS ORDERED: CEFAZOLIN 2 GM-D5W BAG** 2 GM/50 ML ML IV ONE (13:42)
[2018-12-10] MEDS ORDERED: Lactated Ringers 1,000 ML IV ONE (13:43)
[2018-12-10] MEDS ORDERED: Lactated Ringers 1,000 ML IV SCH (14:00)
[2018-12-10] MEDS ORDERED: Zofran 4 MG/2 ML VIAL ONE (15:42)
[2018-12-10] MEDS ORDERED: ROBINUL ONE (15:42)
[2018-12-10] MEDS ORDERED: Decadron 4 MG INJ ONE (15:42)
--- NOTE | 2018-12-10 16:38 | XRAY ---
Indication: Port placement. Intraoperative fluoroscopy was provided for 3 seconds. Single digital spot image submitted for interpretation demonstrates partially visualized left Port-A-Cath with tip projecting over the SVC. Correlate with intraoperative findings/report.
[2018-12-10 17:02] VITALS: O2SAT 98
[2018-12-10 17:10] VITALS: BP 129/89; PULSE 81
--- NOTE | 2018-12-11 07:59 | OP ---
SURGERY DATE/TIME: 12/10/2018 1537 PREOPERATIVE DIAGNOSIS: Colon cancer, need for long-term IV access for IV treatments. POSTOPERATIVE DIAGNOSIS: Colon cancer, need for long-term IV access for IV treatments. PROCEDURE: Tunnel Port-A-Cath placement with C-arm fluoroscopy. SURGEON: Dr. Juventino Gillis. ANESTHESIA: MAC. 1% lidocaine local. ESTIMATED BLOOD LOSS: Minimal. INDICATIONS: As noted above. Risks and benefits explained in detail and not limited to and consent obtained. DESCRIPTION OF PROCEDURE AND FINDINGS: The patient is taken to the operating room. MAC anesthesia introduced. After official time out and no disagreement with planned procedure, Trendelenburg position. Neck and chest prepped and draped in usual sterile fashion. 1% lidocaine local was infiltrated left subclavicular area. A 18 gauge cannulation needle inserted on first pass. Good dark nonpulsatile venous return. Guide wire passed without difficulty confirmed down the superior vena cava by C-arm fluoroscopy. Lung santamaria noted to be up bilaterally. This was followed by anesthetizing the tunnel track and port pocket. Transverse incision made inferior subcu. Port pocket created with aid of cautery. Port secured to the chest wall with Prolene suture x2. There was one small, little perforating chest wall vessel that was controlled with 3-0 Vicryl suture ligature. Good hemostasis noted. Port secured to the chest wall with Prolene suture x2. Catheter tunneled down from the cannulation stab wound down to port pocket. The dilator and break away sheath easily passed over the guide wire. The tip is pulled back and noted in distal superior vena cava on C-arm fluoroscopy. Catheter snapped on the port at the hub. It aspirated dark nonpulsatile venous return with ease. Flushed with heparinized saline with ease. Lung santamaria were noted to be up bilaterally. The tip was in good location. It was felt no further x-rays were necessary at this point as it was flushing and aspirating with ease. It was flushed with heparinized saline with ease. Good hemostasis noted. Subcu closed with 3-0 Vicryl. Skin closed with 4-0 Vicryl. Cannulation stab wound closed with 4-0 Vicryl. Steri-Strips and sterile dressing applied. The patient tolerated the procedure well. There were no immediate complications. Findings discussed with the family out in the waiting area.
== END 2018-12-10 17:14 | disposition home or self-care (01) ==
LOC: SDC 12:58
PROVIDERS: ATTEND Surgery
DX: C18.9 Malignant neoplasm of colon, unspecified (principal); I10 Essential (primary) hypertension; I48.91 Unspecified atrial fibrillation; Z79.01 Long term (current) use of anticoagulants; Z79.899 Other long term (current) drug therapy
CPT/HCPCS: 36571; 77001; C1788; 99100; J0690; J1100; J1642; J2405; J2704

== ENCOUNTER 2019-01-02 19:39 | Emergency (ER) | payer MEDICARE ==
[2019-01-02] MEDS ORDERED: Zofran 4 MG/2 ML VIAL IV ONE (19:59)
[2019-01-02] MEDS ORDERED: Sodium Chloride 0.9% 1000 ML 1,000 ML IV STA (19:59)
[2019-01-02] MEDS ORDERED: Sodium Chloride 0.9% 1000 ML 1,000 ML ONE ×2 (20:20→22:06)
[2019-01-02] MEDS ORDERED: Zofran 4 MG/2 ML VIAL ONE (20:20)
[2019-01-02 20:29] LABS: Hematocrit 37.4 % (35-47); Hemoglobin 13.1 gm/dl (12.0-16.0); Mean Corpuscular Hemoglobin 31.2 pg (26-32); Mean Platelet Volume 9.5 fl (6-9.5); Platelet Count 280 K/mm3 (150-450); Red Cell Distribution Width 15.4 % (11.5-14.0); White Blood Count 4.4 K/mm3 (4.0-10.5)
[2019-01-02 20:44] LABS: ALBUMIN 3.3 g/dL (3.5-5.0); ALKALINE PHOSPHATASE 41 U/L (38-126); ANION GAP 13.3 MEQ/L (5-15); BLOOD UREA NITROGEN 20 mg/dL (7-17); CHLORIDE 105 mmol/L (98-107); Calcium 8.6 mg/dL (8.4-10.2); Carbon Dioxide 22 mmol/L (22-30); Creatinine 1 0.66 mg/dL (0.52-1.04); Glucose 127 mg/dL (74-106); LIPASE 50 U/L (23-300); SGOT/AST 20 U/L (14-36); SGPT/ALT 16 U/L (0-35); SODIUM 137 mmol/L (137-145)
[2019-01-02] MEDS ORDERED: Klor Con 10 MEQ PO ONE ×2 (20:52→20:58)
[2019-01-02 20:53] LABS: Potassium 2.7 mmol/L (3.5-5.1)
[2019-01-02] MEDS ORDERED: POTASSIUM CHLORIDE 20 mEq IN WATER 100ML 100 ML IV ONE ×2 (20:58→23:07)
[2019-01-02 21:02] LABS: Appearance SLIGHTLY CLOUDY (CLEAR); Bilirubin NEGATIVE (NEGATIVE); Blood SMALL Ery/ul (0-5); Glucose NEGATIVE (NEGATIVE); Ketones TRACE (NEGATIVE); Leukocyte Esterase NEGATIVE (NEGATIVE); Mucus SLIGHT /HPF (NEGATIVE); Nitrite NEGATIVE (NEGATIVE); Protein,Urine Dip 30 (Negative); RBC 0-2 /HPF (0-2); Specific Gravity 1.027 (1.005-1.025); Urobilinogen NEGATIVE mg/dL (0-1); WBC 0-2 /HPF (0-5)
[2019-01-02 21:03] LABS: Bacteria NONE SEEN /HPF (NEGATIVE)
[2019-01-02] MEDS: POTASSIUM CHLORIDE 20 mEq IN WATER 100ML 20 MEQ/100 ML BAG IV SCH ×2 (21:08→23:07)
[2019-01-02 21:51] LABS: BAND 34 % (0.0-2.0); Eosinophil 1 % (0.00-3.0); Lymphocytes 32 % (24-44); Metamyelocyte 1 %; Monocyte 13 % (0.0-12.0); Neutrophils 19 % (36.0-66.0); Total Cells Counted 100
[2019-01-02 21:52] LABS: Dohle Bodies 2+; Platelet Estimate NORMAL (NORMAL)
[2019-01-02] MEDS ORDERED: Sodium Chloride 0.9% 1000 ML 1,000 ML IV SCH (22:15)
--- NOTE | 2019-01-03 02:18 | ERPHSYRPT ---
- History of Present Illness Source: patient Exam Limitations: no limitations Patient Subjective Stated Complaint: pt states she is increasingly weak and has been having stomach discomfort today. states she is currently getting treatment for colon ca. last treatment last monday- this week is her week off. Triage Nursing Assessment: pt alert and oriented. answsers questions approp. pt back per wheelchair, transfers to stretcher with assist of 1. weak gait noted. respirations nonlabored. skin pink warm and dry. bowel sounds present x4 Physician History: Pt is an 83 y/o female with a recent h/o colon CA and resection, and she is on chemo now. She presented to the ED with severe weakness. Pt states, is very tired and fatigued. She did have diarrhea, and some vomiting, and has some abdominal discomfort. She was seen by her oncologist recently, and she was told that she is doing fine, and KCl was added to her meds. Pt denies F/C/S. No SOB or cough. No dysuria, frequency and urgency. No chest pain or palpitations. Timing/Duration: day(s) Severity: moderate Associated Symptoms: nausea, vomiting, abdominal pain, weakness, other (diarrhea ) Allergies/Adverse Reactions: acetaminophen [From [place]] Adverse Reaction (Severe, Verified 01/02/19 20:04) hydrocodone [From [place]] Adverse Reaction (Severe, Verified 01/02/19 20:04) confusion Opioids - Morphine Analogues Adverse Reaction (Severe, Verified 01/02/19 20:04) Rapid Heart Beat "personality changes,confused" tramadol Adverse Reaction (Severe, Verified 01/02/19 20:04) confusion Home Medications: Atenolol 50 mg [Tenormin 50 mg] 50 mg PO BID 09/03/18 [History] Enalapril Maleate [Vasotec] 10 mg PO BID 09/03/18 [History] Esomeprazole Magnesium [Nexium] 40 mg PO DAILY 09/03/18 [History] Ascorbate Calcium [Vitamin C] 500 mg PO DAILY 10/26/18 [History] Atorvastatin Calcium [Lipitor] 40 mg PO DAILY 10/26/18 [History] B12/Levomefolate Calcium/B-6 [Foltx Tablet] 1 each PO DAILY 10/26/18 [History] Albuterol Sulfate [Proair Respiclick] 90 mcg IH 01/02/19 [History] Amlodipine Besylate [Norvasc] 2.5 mg PO DAILY 01/02/19 [History] Cholecalciferol (Vitamin D3) [Vitamin D] 1,000 unit PO DAILY 01/02/19 [ History] Potassium Chloride 10 Meq Tab* [Klor Con 10 MEQ] 10 meq PO DAILY 01/02/19 [ History] Hx Tetanus, Diphtheria Vaccination/Date Given: Yes Hx Influenza Vaccination/Date Given: Yes Hx Pneumococcal Vaccination/Date Given: Yes Immunizations Up to Date: Yes - Review of Systems Constitutional: Fatigue, Lethargy Eyes: No Symptoms Ears, Nose, & Throat: No Symptoms Respiratory: No Cough, No Dyspnea Cardiac: No Chest Pain, No Edema, No Syncope Abdominal/Gastrointestinal: Abdominal Pain, Nausea, Vomiting, Diarrhea Genitourinary Symptoms: No Dysuria Musculoskeletal: No Back Pain, No Neck Pain Neurological: No Dizziness, No Focal Weakness, No Sensory Changes - Past Medical History Pertinent Past Medical History: Yes Neurological History: No Pertinent History ENT History: Cataracts, Glaucoma Cardiac History: Arrhythmia, Coronary Artery Disease, Hypertension, Myocardial Infarction ([place]) Respiratory History: Bronchitis, Other Endocrine Medical History: No Pertinent History Musculoskeletal History: Arthritis, Fractures GI Medical History: GERD History: No Pertinent History Psycho-Social History: No Pertinent History Female Reproductive Disorders: Other Other Medical History: Former smoker. Hx of bronchitis, uses inhaler prn. Hx of fractured right hip with 3 screws placed. Hc of colon cancer - Past Surgical History Past Surgical History: Yes Neuro Surgical History: No Pertinent History Cardiac: Cardiac Catheterization, Cardiac Stent Respiratory: No Pertinent History Gastrointestinal: Colon Resection Genitourinary: No Pertinent History Musculoskeletal: Orthopedic Surgery Female Surgical History: Hysterectomy Other Surgical History: Fractured right hip repaired with 3 screws. Bunion removed. , colonoscopy - Social History Smoking Status: Former smoker Exposure to second hand smoke: Yes Drug Use: none Patient Lives Alone: Yes - Nursing Vital Signs Nursing Vital Signs: Initial Vital Signs Temperature 98.4 F 01/02/19 19:53 Pulse Rate 103 H 01/02/19 19:53 Respiratory Rate 18 01/02/19 19:53 Blood Pressure 131/67 01/02/19 19:53 O2 Sat by Pulse Oximetry 96 01/02/19 19:53 Pain Scale Pain Intensity 4 - Physical Exam General Appearance: mild distress Eye Exam: PERRL/EOMI, eyes nml inspection Ears, Nose, Throat Exam: normal ENT inspection, TMs normal, pharynx normal, moist mucous membranes Neck Exam: normal inspection, non-tender, supple, full range of motion Respiratory Exam: normal breath sounds, lungs clear, No respiratory distress Cardiovascular Exam: regular rate/rhythm, normal heart sounds, normal peripheral pulses Gastrointestinal/Abdomen Exam: soft, tenderness (diffuse) Back Exam: normal inspection, normal range of motion, No CVA tenderness, No vertebral tenderness Extremity Exam: limited range of motion (S/P hip replacement) Neurologic Exam: alert, 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, cooperative, normal mood/affect, nml cerebellar function, nml station & gait, sensation nml, No motor deficits SpO2: 94 - Course Nursing assessment & vital signs reviewed: Yes EKG Interpreted by Me: RATE (100bpm), Non-specific ST Changes Rhythm Strip: Atrial Fibrillation - CT Exams Abdomen/Pelvis CT Interpretation: Tele-radiologist Report (there is thickening of the wall of the distal small bowel loops, with adjacent stranding. Consstent with eneritis. ) Ordered Tests: Active Orders 24 hr Category Date Time Status Manager Channel STAT Care 01/02/19 21:16 Active EKG-ER Only STAT Care 01/02/19 20:09 Active IV Insertion STAT Care 01/02/19 20:18 Active cath [Cath for Specimen-Straight] STAT Care 01/02/19 20:36 Active ABDOMEN AND PELVIS W/0 CONTRAS [CT] Stat Exams 01/02/19 23:17 Taken BLOOD CULTURE Stat Lab 01/02/19 20:26 Received CBC W DIFF Stat Lab 01/02/19 20:25 Completed CMP Stat Lab 01/02/19 20:25 Completed CULTURE,URINE Stat Lab 01/02/19 20:56 Received LIPASE Stat Lab 01/02/19 20:25 Completed Lactic Acid Stat Lab 01/02/19 20:14 Completed Manual Differential NC Stat Lab 01/02/19 20:25 Completed Potassium (Lab Test) [Potassium] Stat Lab 01/03/19 01:47 Completed UA W/RFX UR CULTURE Stat Lab 01/02/19 20:56 Completed Medication Summary Generic Name Dose Route Start Last Admin Trade Name Freq PRN Reason Stop Dose Admin Potassium Chloride 20 meq in 100 mls @ 50 mls/hr 01/02/19 21:00 01/02/19 23: 07 Potassium Chloride 20 Meq In Water 100ml IV 01/03/19 00:59 50 mls/hr Q2H ALEJANDRA Administration Sodium Chloride 1,000 mls @ 250 mls/hr 01/02/19 22:15 01/02/19 22:08 Sodium Chloride 0.9% 1000 Ml IV 02/01/19 22:14 250 mls/hr .Q4H ALEJANDRA Administration Discontinued Medications Generic Name Dose Route Start Last Admin Trade Name Marvin PRN Reason Stop Dose Admin Sodium Chloride 1,000 mls @ 999 mls/hr 01/02/19 19:59 01/02/19 21:25 Sodium Chloride 0.9% 1000 Ml IV 01/02/19 20:59 Infused .Q1H1M STA Infusion Sodium Chloride Confirm 01/02/19 20:20 Sodium Chloride 0.9% 1000 Ml Administered 01/02/19 20:21 Dose 1,000 mls @ ud .ROUTE .STK-MED ONE Ondansetron HCl 4 mg 01/02/19 19:59 01/02/19 20:23 Zofran 4 Mg/2 Ml Vial IV 01/02/19 20:00 4 mg STAT ONE Administration Ondansetron HCl Confirm 01/02/19 20:20 Zofran 4 Mg/2 Ml Vial Administered 01/02/19 20:21 Dose 4 mg .ROUTE .STK-MED ONE Potassium Chloride 40 meq 01/02/19 20:52 01/02/19 21:08 Klor Con 10 Meq PO 01/02/19 20:53 40 meq STAT ONE Administration Potassium Chloride Confirm 01/02/19 20:58 Klor Con 10 Meq Administered 01/02/19 20:59 Dose 40 meq PO .STK-MED ONE Lab/Rad Data: Laboratory Result Diagrams 01/02/19 20:25 01/03/19 01:47 Laboratory Results 01/03/19 01/02/19 01/02/19 Range/Units 01:47 20:56 20:25 WBC (4.0-10.5) K/mm3 RBC (4.1-5.4) M/mm3 Hgb (12.0-16.0) gm/dl Hct (35-47) % MCV (78-100) fl MCH (26-32) pg MCHC (32-36) g/dl RDW (11.5-14.0) % Plt Count (150-450) K/mm3 MPV (6-9.5) fl Segmented Neutrophils (36.0-66.0) % Band Neutrophils (0.0-2.0) % Lymphocytes (Manual) (24-44) % Monocytes (Manual) (0.0-12.0) % Eosinophils (Manual) (0.00-3.0) % Metamyelocytes % Dohle Bodies Platelet Estimate (NORMAL) RBC Morphology Sodium 137 (137-145) mmol/L Potassium 3.6 D 2.7 L* (3.5-5.1) mmol/L Chloride 105 (98-107) mmol/L Carbon Dioxide 22 (22-30) mmol/L Anion Gap 13.3 (5-15) MEQ/L BUN 20 H (7-17) mg/dL Creatinine 0.66 (0.52-1.04) mg/dL Estimated GFR > 60.0 ML/MIN Glucose 127 H (74-106) mg/dL Lactic Acid (0.4-2.0) Calcium 8.6 (8.4-10.2) mg/dL Total Bilirubin 0.80 (0.2-1.3) mg/dL AST 20 (14-36) U/L ALT 16 (0-35) U/L Alkaline Phosphatase 41 (38-126) U/L Serum Total Protein 6.0 L (6.3-8.2) g/dL Albumin 3.3 L (3.5-5.0) g/dL Lipase 50 (23-300) U/L Urine Color RYAN (YELLOW) Urine Appearance SLIGHTLY CLOUDY (CLEAR) Urine pH 5.0 (5-6) Ur Specific [place] 1.027 (1.005-1.025) Urine Protein 30 (Negative) Urine Ketones TRACE (NEGATIVE) Urine Blood SMALL (0-5) Osmin/ul Urine Nitrite NEGATIVE (NEGATIVE) Urine Bilirubin NEGATIVE (NEGATIVE) Urine Urobilinogen NEGATIVE (0-1) mg/dL Ur Leukocyte Esterase NEGATIVE (NEGATIVE) Urine WBC (Auto) 0-2 (0-5) /HPF Urine RBC (Auto) 0-2 (0-2) /HPF U Epithel Cells (Auto) NONE (FEW) /HPF Urine Bacteria (Auto) NONE SEEN (NEGATIVE) /HPF Urine Mucus (Auto) SLIGHT (NEGATIVE) /HPF Urine Culture Reflexed ORDERED SEPARATELY (NO) Urine Glucose NEGATIVE (NEGATIVE) mg/dL 01/02/19 01/02/19 Range/Units 20:25 20:14 WBC 4.4 (4.0-10.5) K/mm3 RBC 4.20 (4.1-5.4) M/mm3 Hgb 13.1 (12.0-16.0) gm/dl Hct 37.4 (35-47) % MCV 89.0 (78-100) fl MCH 31.2 (26-32) pg MCHC 35.0 (32-36) g/dl RDW 15.4 H (11.5-14.0) % Plt Count 280 (150-450) K/mm3 MPV 9.5 (6-9.5) fl Segmented Neutrophils 19 L (36.0-66.0) % Band Neutrophils 34 H (0.0-2.0) % Lymphocytes (Manual) 32 (24-44) % Monocytes (Manual) 13 H (0.0-12.0) % Eosinophils (Manual) 1 (0.00-3.0) % Metamyelocytes 1 % Dohle Bodies 2+ Platelet Estimate NORMAL (NORMAL) RBC Morphology NORMAL Sodium (137-145) mmol/L Potassium (3.5-5.1) mmol/L Chloride (98-107) mmol/L Carbon Dioxide (22-30) mmol/L Anion Gap (5-15) MEQ/L BUN (7-17) mg/dL Creatinine (0.52-1.04) mg/dL Estimated GFR ML/MIN Glucose (74-106) mg/dL Lactic Acid 1.5 (0.4-2.0) Calcium (8.4-10.2) mg/dL Total Bilirubin (0.2-1.3) mg/dL AST (14-36) U/L ALT (0-35) U/L Alkaline Phosphatase (38-126) U/L Serum Total Protein (6.3-8.2) g/dL Albumin (3.5-5.0) g/dL Lipase (23-300) U/L Urine Color (YELLOW) Urine Appearance (CLEAR) Urine pH (5-6) Ur Specific [place] (1.005-1.025) Urine Protein (Negative) Urine Ketones (NEGATIVE) Urine Blood (0-5) Osmin/ul Urine Nitrite (NEGATIVE) Urine Bilirubin (NEGATIVE) Urine Urobilinogen (0-1) mg/dL Ur Leukocyte Esterase (NEGATIVE) Urine WBC (Auto) (0-5) /HPF Urine RBC (Auto) (0-2) /HPF U Epithel Cells (Auto) (FEW) /HPF Urine Bacteria (Auto) (NEGATIVE) /HPF Urine Mucus (Auto) (NEGATIVE) /HPF Urine Culture Reflexed (NO) Urine Glucose (NEGATIVE) mg/dL - Progress Progress: improved Progress Note: 01/03/19 02:19 Pt had lab work that showed severe hypokalemia. Pt got 40meq PO and 40meq IV. Her repeat K was 3.6. Pt has enteritis, that can be secondary to chemo. She should f/u with her oncologist for a plan and therapy. Her sCr was normal, and she had no leukocytosis. Vitals are stable. Pt did not want to be admitted as obs, in the hospital. She is stable for d/c. Will see patient in: office Counseled pt/family regarding: need for follow-up - Departure Departure Disposition: Home Clinical Impression: Hypokalemia due to excessive gastrointestinal loss of potassium Condition: Stable Critical Care Time: No Referrals: BETTY PRAKASH MD [Primary Care Provider] - Additional Instructions: F/U with PCP, to adjust your PO Potassium supplement. F/U with your oncologist about the enteritis, and plan for therapy.
[2019-01-03] MEDS ORDERED: TORAdol 30 mg Injection IM ONE (02:36)
[2019-01-03] MEDS ORDERED: TORAdol 30 mg Injection ONE (02:39)
[2019-01-03 03:05] VITALS: BP 115/57; PULSE 104; O2SAT 97
--- NOTE | 2019-01-03 09:13 | XRAY ---
Indication: Lower abdominal pain, diarrhea, and vomiting. History of colon cancer with resection July 2018. Multiple contiguous axial images obtained through the abdomen and pelvis without contrast as ordered. Comparison: Outside exam from [facility] dated July 06, 2018. Lung bases again demonstrates minimal bibasilar fibrosis/scarring. No infiltrate or effusion. Heart is not enlarged. Noncontrasted stomach and bowel loops appear nonobstructed. Pelvic small bowel loops are mildly fluid distended with wall thickening and minimal stranding favoring enteritis. Interval ascending colon resection with intact anastomosis. Remaining colon is mildly fluid distended with fluid leveling favoring diarrhea. No free fluid/air. Gallbladder is contracted with new intraluminal sludge. No gallstones or abnormal biliary distention. Stable 1.1 cm hepatic cyst near the dome of the diaphragm. Remaining liver, gallbladder, pancreas, spleen, adrenal glands, kidneys, ureters, and bladder appear unremarkable for noncontrast exam. There remains scattered vascular calcifications without AAA. Osseous structures again demonstrates osteopenia, mild/moderate multilevel degenerative spondylosis, and grade 1 L4 spondylolisthesis. Proximal right femur demonstrates 3 new orthopedic screws fixating fracture. Impression: 1. Small bowel loops in the pelvis demonstrates CT features favoring enteritis. Also fluid distended colon with fluid leveling favoring diarrhea. 2. Status post partial ascending colon resection. 3. Contracted gallbladder with sludge. 4. Stable hepatic cyst. 5. Again multilevel degenerative spondylosis with grade 1 L4 spondylolisthesis. Status post right hip ORIF surgery. Comment: Preliminary interpretation was made by [facility]. No critical discrepancy. CT DI 18.49
== END 2019-01-03 02:58 | disposition home or self-care (01) ==
LOC: ED 19:39
DX: E87.6 Hypokalemia (principal); Z79.891 Long term (current) use of opiate analgesic
CPT/HCPCS: 36000; 36415; 74176; 80053; 81001; 83605; 83690; 84132; 85025; 87040; 87086; 93005; 93041; 96360; 96361; 96365; 96366; 96372; 96374; 99285; P9612; J1885; J2405; J3480; A9270-GY

== ENCOUNTER 2019-11-11 09:23 | Day surgery (SDC) | payer MEDICARE ==
--- NOTE | 2019-11-08 12:08 | HP ---
DATE OF SURGERY: 11/11/2019 HISTORY OF PRESENT ILLNESS: The patient is an 84 year old with history of colon cancer. She is in need of follow up colonoscopy. PAST MEDICAL HISTORY: Heart disease. Atrial fibrillation. Hypertension. Colon cancer. PAST SURGICAL HISTORY: Hysterectomy in the past. Laparoscopic assisted right colectomy in the past. Port-A-Cath in the past. Colonoscopy in the past. Hip surgery in the past. MEDICATIONS: Vasotec, Nexium, Atenolol, aspirin, vitamin D3, Norvasc, vitamin B12, Lipitor, Eliquis. ALLERGIES: NKDA. FAMILY HISTORY: Heart disease. Leukemia. SOCIAL HISTORY: No smoking or alcohol abuse. REVIEW OF SYSTEMS: Fourteen systems reviewed. No chest pain or palpitations. Otherwise pertinent for multiple medical problems as noted above. PHYSICAL EXAMINATION: GENERAL: No acute distress. HEENT: Sclerae nonicteric. NECK: No JVD. CHEST: Equal excursion, nonlabored breathing. Clear to auscultation. CVS: Regular rate and rhythm. ABDOMEN: Soft. No peritoneal signs. EXTREMITIES: No significant edema. NEURO: Alert, oriented, moving extremities symmetrically. No gross motor deficits noted. RECTAL: Deferred timed to endoscopy exam. IMPRESSION: History of colon cancer. She needs follow up colonoscopy. Risks and benefits explained in detail including but not limited to bleeding or infection, risk of bowel injury or perforation possibly requiring open procedure, risk of missed or nondiagnosis or incomplete exam possibly requiring barium enema, other studies or procedures, general risk of anesthesia or sedation but not limited to. She understands and agrees to the planned procedure and will proceed with outpatient colonoscopy.
[~2019-11-11 09:23] MED LIST changes: -CEFAZOLIN 2 GM-D5W BAG** 2 GM/50 ML ML IV ONE; -Hydromorphone 1 mg/ml Ampule IV ONE; -Ketamine HCl 50 MG/ML ONE; +Lactated Ringers 1,000 ML IV SCH; -XYLOCAINE 1% HCL 20 ML MDV ONE
[2019-11-11] MEDS ORDERED: Sodium Chloride 0.9% 10 ML FLUSH Syringe PORT FLUSH PRN (09:43)
[2019-11-11 12:47] VITALS: BP 130/74; PULSE 73; O2SAT 96
--- NOTE | 2019-11-12 08:39 | OP ---
SURGERY DATE/TIME: 11/11/2019 1108 PREOPERATIVE DIAGNOSIS: History of colon cancer, need for follow up colonoscopy. POSTOPERATIVE DIAGNOSES: 1) Slight thickening ileocolonic anastomotic site. 2) Diverticulosis. 3) Small internal and external hemorrhoids. 4) Fair bowel prep. 5) ASA Class III. 6) Withdrawal time approximately six minutes. PROCEDURES: 1) Colonoscopy to terminal ileum. 2) Retrograde ileoscopy. 3) Cold biopsy of just slight thickening ileocolonic anastomotic site, evaluate for normal healing versus small chance of early recurrence, path pending. Bowel prep was fair. SURGEON: Dr. Juventino Gillis. ANESTHESIA: MAC. ESTIMATED BLOOD LOSS: Minimal. INDICATIONS: As noted above. Risks and benefits explained in detail but not limited to and consent obtained. DESCRIPTION OF PROCEDURE AND FINDINGS: The patient is taken to the operating room. MAC anesthesia induced. After official time out and no disagreement with planned procedure, digital rectal exam did not reveal any rectal masses. She did have some small internal and external hemorrhoids. Video colonoscope inserted and passed up through the slight tortuous sigmoid, descending, transverse and ascending colon around to the terminal ileum. Retrograde ileoscopy performed and is grossly unremarkable. Scope pulled back to ileocolonic anastomotic site. There was slight thickening of the junction. Whether this is just normal healing or not cold biopsy is taken for evaluation. Good hemostasis noted. Otherwise slow careful withdrawal over the next six minutes. Prep overall is fair with some liquidy semisolid stool suction irrigated as clear as possible. Otherwise there were no signs of any large polyps, masses or obstructing lesions. She did have few mild diverticulosis and some small internal and external hemorrhoids. Otherwise, no signs of any large polyps, masses or obstructing lesions. There is no family here available to discuss the findings with.
== END 2019-11-11 12:05 | disposition home or self-care (01) ==
LOC: SDC 09:23
PROVIDERS: ATTEND Surgery
DX: Z08 Encounter for follow-up examination after completed treatment for malignant neoplasm (principal); Z85.038 Personal history of other malignant neoplasm of large intestine; K57.30 Diverticulosis of large intestine without perforation or abscess without bleeding; K64.4 Residual hemorrhoidal skin tags; K64.8 Other hemorrhoids; Z90.49 Acquired absence of other specified parts of digestive tract; I10 Essential (primary) hypertension; Z79.899 Other long term (current) drug therapy; Z86.79 Personal history of other diseases of the circulatory system; Z79.01 Long term (current) use of anticoagulants
CPT/HCPCS: 88305; 99100; J1642; J2704

== ENCOUNTER 2019-12-23 08:20 | Day surgery (SDC) | payer MEDICARE ==
--- NOTE | 2019-12-23 08:14 | HP ---
DATE OF SURGERY: 12/23/2019 HISTORY OF PRESENT ILLNESS: The patient is an 84 year old with prior history of colon cancer in the past. She had a CT scan that apparently had some thickening on the CT scan wall of the distal stomach, duodenal bulb and referred for setting up an upper endoscopy. PAST MEDICAL HISTORY: Stage III colon cancer, hypertension, atrial fibrillation, arthritis, anemia. PAST SURGICAL HISTORY: Colectomy and reanastomosis. Hysterectomy. Right bunion removed in the past. Colonoscopy in the past. MEDICATIONS: PreserVision, amlodipine, atorvastatin, Eliquis, omeprazole, Atenolol, Enalapril, vitamin D, vitamin B12, aspirin. ALLERGIES: ACETAMINOPHEN. HYDROCODONE. OPIOIDS-MORPHINE. TRAMADOL. FAMILY HISTORY: Hypertension. Coronary artery disease. Leukemia apparently according to the patient. SOCIAL HISTORY: Former smoker. No alcohol use. REVIEW OF SYSTEMS: Fourteen systems reviewed. No chest pain or palpitations. Just recently had a follow up colonoscopy. PHYSICAL EXAMINATION: GENERAL: No acute distress. HEENT: Sclerae nonicteric. NECK: No JVD. CHEST: Equal excursion, nonlabored breathing. CVS: Regular rate and rhythm. ABDOMEN: Soft. No peritoneal signs. EXTREMITIES: No cyanosis. NEURO: Alert, oriented, moving extremities symmetrically. IMPRESSION: History of thickened stomach and duodenum, is in need of upper endoscopy to evaluate for gastritis, peptic ulcer disease or other etiology. Risks and benefits explained in detail including but not limited to bleeding or infection, risk of bowel injury or perforation possibly requiring open procedure, risk of missed or nondiagnosis or incomplete exam possibly requiring barium swallow, other studies or procedures. General risk of anesthesia or sedation but not limited to, risk of perforation possibly requiring open procedure, ongoing morbidity but not limited to. She understands and agreed to the planned procedure, will proceed with EGD possible biopsy as an outpatient.
[2019-12-23] MEDS ORDERED: Lactated Ringers 1,000 ML IV SCH ×2 (09:00)
[2019-12-23] MEDS ORDERED: Lactated Ringers 1,000 ML IV ONE (09:02)
[2019-12-23] MEDS ORDERED: DIPRIVAN 200 MG/20 ML IV ONE (10:31)
[2019-12-23 11:36] VITALS: BP 136/63; PULSE 73; O2SAT 95
[2019-12-23] MEDS ORDERED: Sodium Chloride 0.9% 10 ML FLUSH Syringe PORT FLUSH PRN (11:36)
--- NOTE | 2019-12-24 10:34 | OP ---
SURGERY DATE/TIME: 12/23/2019 1147 PREOPERATIVE DIAGNOSIS: History of thickened distal stomach, proximal duodenal area on CT scan. History of colon cancer. POSTOPERATIVE DIAGNOSIS: Erosive gastritis. PROCEDURES: EGD with cold biopsy of antrum for Helicobacter pylori. SURGEON: Dr. Juventino Gillis. ANESTHESIA: MAC. ESTIMATED BLOOD LOSS: Minimal. INDICATIONS: As noted above. Risks and benefits explained in detail and not limited to and consent obtained. DESCRIPTION OF PROCEDURE AND FINDINGS: The patient is taken to the endoscopy room. MAC anesthesia introduced. Bite block positioned. Video gastroscope easily passed through the esophagus through the patent pylorus to the junction of the second and third portion of the duodenum. Duodenum and duodenal bulb grossly unremarkable. Proximal duodenum and duodenal bulb grossly unremarkable. In the stomach there was some evidence of some thickening and what seemed to be some erosive gastritis. There is nothing large enough to call an ulcer but seemed to account for the CT findings. Cold biopsy taken to evaluate for path and Helicobacter pylori. Good hemostasis noted. On retroflex gastroesophageal junction fairly snug against the scope. No signs of any significant hernia on endoscopic view. The scope straightened and gastroesophageal junction 40 cm. Z-line was crisp. Esophagus grossly unremarkable. No signs of any obvious mucosal lesions. The scope is withdrawn. The patient tolerated the procedure well. Findings discussed with the family out in the waiting area. I will see her back in the office next week to go over the results.
== END 2019-12-23 11:55 | disposition home or self-care (01) ==
LOC: SDC 08:20
PROVIDERS: ATTEND Surgery
DX: K29.70 Gastritis, unspecified, without bleeding (principal); Z85.038 Personal history of other malignant neoplasm of large intestine; I10 Essential (primary) hypertension; Z79.01 Long term (current) use of anticoagulants; Z79.899 Other long term (current) drug therapy
CPT/HCPCS: 99100; J1642; J2704

== ENCOUNTER 2020-01-21 08:15 | Day surgery (SDC) | payer MEDICARE ==
[~2020-01-21 08:15] MED LIST changes: +Ak-Dilate OPHTHALMIC*** 1.065 ML, Cyclogyl 1% OPHTH SOL 5 ML 1.065 ML, GATIFLOXACIN 0.5... OP ONE; -Lactated Ringers 1,000 ML IV ONE; +NON-FORMULARY ITEM OP ONE; +TETRACAINE 0.5% STERI-UNIT SOL OP ONE
[2020-01-21] MEDS ORDERED: BETADINE 5% OPHTHALMIC 30 ML OP ONE (08:16)
[2020-01-21] MEDS ORDERED: LIDOCAINE HCL 1% 50 MG/5 ML VL PF IJ ONE (08:16)
[2020-01-21] MEDS ORDERED: Epinephrine Preservative Free 1 MG/ML IJ ONE (08:16)
[2020-01-21] MEDS ORDERED: Lactated Ringers 1,000 ML IV ONE (08:40)
[2020-01-21 08:47] VITALS: O2SAT 97
[2020-01-21] MEDS ORDERED: ACETAZOLAMIDE 250 MG TABLET PO ONE (09:00)
[2020-01-21] MEDS ORDERED: cefUROXime sodium 0.005 GM in Sodium Chloride Flush 30 ML*** 0.5 ML IJ SCH (09:00)
[2020-01-21] MEDS ORDERED: Zofran 4 MG/2 ML VIAL IV PRN (09:00)
[2020-01-21 10:42] LABS: INR 1.22 (0.8-3.0); PROTIME 13.8 SECONDS (9.95-12.35)
[2020-01-21 12:45] VITALS: BP 148/80; PULSE 68
[2020-01-21] MEDS ORDERED: Sodium Chloride 0.9% 10 ML FLUSH Syringe PORT FLUSH PRN (12:54)
--- NOTE | 2020-01-22 10:53 | OP ---
DATE/TIME OF OPERATION: 01/21/2020 1121 TIME DICTATED: 01/21/2020 1314 PREOPERATIVE DIAGNOSIS: Senile cataract of left eye. POSTOPERATIVE DIAGNOSIS: Senile cataract of left eye. SURGEON: Oli Sharma MD DESIGN ENGINEERING INTERN: NONE OPERATION: Cataract extraction of left eye with an intraocular lens implant STANDARD __X___ COMPLEX ANESTHESIA: ___X___ Monitored anesthesia care in combination with topical and intra-cameral anesthesia (because of the established specific risk of reflux, arrhythmias, or an anxiety attack associated with ocular manipulation as well as difficulty of the avionics systems engineer to manage such potentially catastrophic events while simultaneously attempting to complete the surgical procedure, it was deemed necessary for the patient's safety to have an anesthesiologist or a nurse medical assistant prn present during the procedure whenever possible. The anesthesiologist or the nurse medical assistant prn was utilized to monitor and regulate the intravenous sedation of the patient, so the patient was cooperative, relaxed, and comfortable). Topical anesthesia using Tetracaine eye drops together with intra cameral anesthesia using Lidocaine 1% MPF. The nurse was utilized to monitor the patient. ANESTHESIA PROVIDER: Anish Bertrand CRNA. COMPLICATIONS: None. BLOOD LOSS: None INDICATIONS: The patient is undergoing cataract surgery in the hopes of eliminating the visual complaints and difficulty. PROCEDURE: After arriving at the facility's outpatient surgery area, an IV was started; the patient was given 5 mg of p.o. Versed. (If an anesthesia provider was not monitoring the patient) The patient was then given topical anesthetic Tetracaine eye drops. A cotton pellet was soaked into a solution of a combination of Zymaxid 0.5%, Mitchell-Synephrine 2.5% and Ocufen (other drops might have been substituted referenced in the patient's record). The pellet was inserted by the RN into the lower conjunctival cul-de-sac with a sterile forceps and left for 20 minutes. The pellet was then removed by the RN with a sterile forceps before taking the patient to the operating room. The preoperative area nurse identified the patient and marked the correct eye to be operated on. I identified the correct eye to be operated on and marked it appropriately in the outpatient surgery area. The patient was then taken into the operating room. Tetracaine eye drops were installed again in the correct eye. The eyelids and the lashes and the lid margins were scrubbed with Betadine solution. One drop of the diluted Betadine solution was placed in the conjunctival cul-de-sac for 45 seconds and then was irrigated. A drop of Tetracaine Gel was placed in the conjunctival cul-de-sac. The patient's forehead was taped to secure it during the procedure. The patient was monitored. The patient was then draped in the usual way for this procedure. An eye speculum was used to separate the eyelids. The eye was then fixated and a temporal 2.5 mm incision was made in the clear cornea temporally at the limbus. Through the incision, 0.25 cc of 1% non-preserved lidocaine was injected into the anterior chamber for intracameral anesthesia. The anterior chamber was then filled with viscoelastic. The pupil was small. I felt that it would be safer to mechanically dilate the pupil. A Malyugin ring was used at this point which dilated the pupil. That was removed at the end of the procedure prior to aspiration of the viscoelastic from the anterior chamber and posterior to the intraocular lens implant. The cataract had a great amount of cortical changes. That rendered seeing the anterior capsule difficult for a safe performance of an anterior capsulotomy. I injected an air bubble into the anterior chamber. I then injected 1 ML of vision blue solution into the anterior chamber. The vision blue solution was irrigated from the anterior chamber after 30 seconds. The anterior capsule was stained which facilitated performing the anterior capsulotomy safely. After that was completed, a cystotome was introduced into the anterior chamber and a round anterior capsulotomy was performed. The capsule was removed by a forceps. Hydrodissection was next carried utilizing a 25-gauge cannula and balanced salt solution to delineate the cortical material from the capsule and the nucleus from the cortical material. The nucleus was rotated freely into the capsular bag with no difficulty. The phaco tip of the [employer] Phacoemulsifier was introduced into the anterior chamber and two grooves were made into the nucleus 90 degrees apart. Using two spatulas resulted into the nucleus being fractured into four quadrants. The phaco tip was then used to remove each quadrant of the nucleus. Viscoelastic was used during this process to protect the corneal endothelium. Once the entire nucleus was removed, the phaco tip then was removed and the irrigation tip was introduced into the eye and the cortex was removed. The posterior capsule was polished. It was noticed that there was a tear into the posterior capsule with few vitreous strands into the pupil plan. An anterior vitrectomy was performed. A 21.00 diopter, SN60WF, posterior chamber lens implant, was inspected and found to be grossly normal. The implant was inserted into the implant injector cartridge; Viscoelastic again was introduced into the anterior chamber, which filled the capsular bag. The implant injector's cartridge tip was placed at the limbal wound and the posterior chamber implant was released into the capsular bag and rotated appropriately. The implant was found to be into the capsular bag and it was centered. 0.2 ml of Tri-Moxi was introduced via 27 gauge cannula into the vitreous cavity through the ciliary processes. Viscoelastic was aspirated from the anterior chamber and posterior to the intraocular lens implant from the capsular bag using the irrigating tip. The anterior chamber was irrigated and filled with 5 cc antibiotic solution (500 cc of BSS plus 2 ml of Fortaz 100 mg/ml) ( if patient was not allergic to the medication). The lips of the corneal incision were hydrated using BSS solution. The anterior chamber was checked and found to be water tight. __X____ One drop each of antibiotic, steroid and NSAID drops (refer to chart for drops used) were placed in the conjunctival cul-de-sac of the operated eye. Patient tolerated the procedure quite well and left the operating room in satisfactory condition. NOTE: At the end of the procedure, 1 mg into 0.1 ml of Cefuroxime was introduced into the anterior chamber posterior to the intraocular lens implant. DISCHARGE SUMMARY: The patient was released in stable condition. The patient and those with the patient were given an instruction sheet as of how to care for the eye after surgery as well as counseling on any abnormal laboratory studies by the postoperative RN. The patient was also given an appointment card for follow-up in the office and is to call immediately for any difficulties including but not limited to pain in the eye, decreased vision, discharge from the eye, headache and or fever. DISCHARGE DIAGNOSIS: Pseudophakia of left eye
== END 2020-01-21 12:25 | disposition home or self-care (01) ==
LOC: SDC 08:15
PROVIDERS: ATTEND Ophthalmology
DX: H25.812 Combined forms of age-related cataract, left eye (principal); I10 Essential (primary) hypertension; I51.9 Heart disease, unspecified; E78.00 Pure hypercholesterolemia, unspecified; Z79.01 Long term (current) use of anticoagulants; Z85.038 Personal history of other malignant neoplasm of large intestine; Z79.899 Other long term (current) drug therapy
CPT/HCPCS: 36415; 85610; 99100; C1780; J0171; J1642; J2001; J2704; A9270-GY

== ENCOUNTER 2020-02-25 10:49 | Day surgery (SDC) | payer MEDICARE ==
[~2020-02-25 10:49] MED LIST changes: +ACETAZOLAMIDE 250 MG TABLET PO ONE; +BETADINE 5% OPHTHALMIC 30 ML OP ONE; -DIPRIVAN 200 MG/20 ML IV ONE; +Epinephrine Preservative Free 1 MG/ML INTRAOP ONE; +LIDOCAINE HCL 1% 50 MG/5 ML VL PF IJ ONE; +Zofran 4 MG/2 ML VIAL IV PRN; +cefUROXime sodium 0.005 GM in Sodium Chloride Flush 30 ML*** 0.5 ML IJ SCH
[2020-02-25 11:35] VITALS: PULSE 63
[2020-02-25] MEDS ORDERED: Lactated Ringers 1,000 ML IV ONE (11:39)
[2020-02-25 12:47] LABS: INR 1.21 (0.8-3.0); PROTIME 13.7 SECONDS (9.95-12.35)
[2020-02-25 15:10] VITALS: BP 103/51
[2020-02-25] MEDS ORDERED: Sodium Chloride 0.9% 10 ML FLUSH Syringe PORT FLUSH PRN (15:20)
[2020-02-25 16:01] VITALS: O2SAT 95
--- NOTE | 2020-02-26 08:05 | OP ---
DATE/TIME OF OPERATION: 02/25/2020 1414 TIME DICTATED: 1803 PREOPERATIVE DIAGNOSIS: Senile cataract of right eye. POSTOPERATIVE DIAGNOSIS: Senile cataract of right eye. SURGEON: Oli Sharma MD CUSTOMER SERVICE CONSULTANT: None. OPERATION: Cataract extraction of right eye with an intraocular lens implant. STANDARD __X__ COMPLEX ANESTHESIA: MAC. __X__ Monitored anesthesia care in combination with topical and intra-cameral anesthesia (because of the established specific risk of reflux, arrhythmias, or an anxiety attack associated with ocular manipulation as well as difficulty of the ice rink attendant to manage such potentially catastrophic events while simultaneously attempting to complete the surgical procedure, it was deemed necessary for the patient's safety to have an anesthesiologist or a nurse nursing education consultant present during the procedure whenever possible. The anesthesiologist or the nurse nursing education consultant was utilized to monitor and regulate the intravenous sedation of the patient, so the patient was cooperative, relaxed, and comfortable). Topical anesthesia using Tetracaine eye drops together with intra cameral anesthesia using Lidocaine 1% MPF. The nurse was utilized to monitor the patient. ANESTHESIA PROVIDER: Cody Braden CRNA. COMPLICATIONS: None. BLOOD LOSS: None. INDICATIONS: The patient is undergoing cataract surgery in the hopes of eliminating the visual complaints and difficulty. PROCEDURE: After arriving at the facility's outpatient surgery area, an IV was started; the patient was given 5 mg of p.o. Versed. (If an anesthesia provider was not monitoring the patient) The patient was then given topical anesthetic Tetracaine eye drops. A cotton pellet was soaked into a solution of a combination of Zymaxid 0.5%, Mitchell-Synephrine 2.5% and Ocufen (other drops might have been substituted referenced in the patient's record). The pellet was inserted by the RN into the lower conjunctival cul-de-sac with a sterile forceps and left for 20 minutes. The pellet was then removed by the RN with a sterile forceps before taking the patient to the operating room. The preoperative area nurse identified the patient and marked the correct eye to be operated on. I identified the correct eye to be operated on and marked it appropriately in the outpatient surgery area. The patient was then taken into the operating room. Tetracaine eye drops were installed again in the correct eye. The eyelids and the lashes and the lid margins were scrubbed with Betadine solution. One drop of the diluted Betadine solution was placed in the conjunctival cul-de-sac for 45 seconds and then was irrigated. A drop of Tetracaine Gel was placed in the conjunctival cul-de-sac. The patient's forehead was taped to secure it during the procedure. The patient was monitored. The patient was then draped in the usual way for this procedure. An eye speculum was used to separate the eyelids. The eye was then fixated and a temporal 2.5 mm incision was made in the clear cornea temporally at the limbus. Through the incision, 0.25 cc of 1% non-preserved lidocaine was injected into the anterior chamber for intracameral anesthesia. The anterior chamber was then filled with viscoelastic. The pupil was small. I felt that it would be safer to mechanically dilate the pupil. A Malyugin ring was used at this point which dilated the pupil. That was removed at the end of the procedure prior to aspiration of the viscoelastic from the anterior chamber and posterior to the intraocular lens implant. The cataract had a great amount of cortical changes. That rendered seeing the anterior capsule difficult for a safe performance of an anterior capsulotomy. I injected an air bubble into the anterior chamber. I then injected 1 ML of vision blue solution into the anterior chamber. The vision blue solution was irrigated from the anterior chamber after 30 seconds. The anterior capsule was stained which facilitated performing the anterior capsulotomy safely. After that was completed, a cystotome was introduced into the anterior chamber and a round anterior capsulotomy was performed. The capsule was removed by a forceps. Hydrodissection was next carried utilizing a 25-gauge cannula and balanced salt solution to delineate the cortical material from the capsule and the nucleus from the cortical material. The nucleus was rotated freely into the capsular bag with no difficulty. The phaco tip of the [employer] Phacoemulsifier was introduced into the anterior chamber and two grooves were made into the nucleus 90 degrees apart. Using two spatulas resulted into the nucleus being fractured into four quadrants. The phaco tip was then used to remove each quadrant of the nucleus. Viscoelastic was used during this process to protect the corneal endothelium. Once the entire nucleus was removed, the phaco tip then was removed and the irrigation tip was introduced into the eye and the cortex was removed. The posterior capsule was polished. It was noticed that there was a tear into the posterior capsule with few vitreous strands into the pupil plan. An anterior vitrectomy was performed. A 22.00 diopter, SN60WF, posterior chamber lens implant, was inspected and found to be grossly normal. The implant was inserted into the implant injector cartridge; Viscoelastic again was introduced into the anterior chamber, which filled the capsular bag. The implant injector's cartridge tip was placed at the limbal wound and the posterior chamber implant was released into the capsular bag and rotated appropriately. The implant was found to be into the capsular bag and it was centered. 0.2 ml of Tri-Moxi was introduced via 27 gauge cannula into the vitreous cavity through the ciliary processes. Viscoelastic was aspirated from the anterior chamber and posterior to the intraocular lens implant from the capsular bag using the irrigating tip. The anterior chamber was irrigated and filled with 5 cc antibiotic solution (500 cc of BSS plus 2 ml of Fortaz 100 mg/ml) ( if patient was not allergic to the medication). The lips of the corneal incision were hydrated using BSS solution. The anterior chamber was checked and found to be water tight. ___X__ One drop each of antibiotic, steroid and NSAID drops (refer to chart for drops used) were placed in the conjunctival cul-de-sac of the operated eye. Patient tolerated the procedure quite well and left the operating room in satisfactory condition. DISCHARGE SUMMARY: The patient was released in stable condition. The patient and those with the patient were given an instruction sheet as of how to care for the eye after surgery as well as counseling on any abnormal laboratory studies by the postoperative RN. The patient was also given an appointment card for follow-up in the office and is to call immediately for any difficulties including but not limited to pain in the eye, decreased vision, discharge from the eye, headache and or fever. DISCHARGE DIAGNOSIS: Pseudophakia of right eye.
== END 2020-02-25 15:45 | disposition home or self-care (01) ==
LOC: SDC 10:49
PROVIDERS: ATTEND Ophthalmology
DX: H25.811 Combined forms of age-related cataract, right eye (principal); I10 Essential (primary) hypertension; E78.00 Pure hypercholesterolemia, unspecified; I51.9 Heart disease, unspecified; Z79.899 Other long term (current) drug therapy; Z79.01 Long term (current) use of anticoagulants
CPT/HCPCS: 36415; 85610; C1780; J0171; J1642; J2001; A9270-GY

== ENCOUNTER 2021-12-06 08:25 | Day surgery (SDC) | payer MEDICARE ==
--- NOTE | 2021-12-06 08:11 | HP ---
DATE OF SURGERY: 12/06/2021 HISTORY OF PRESENT ILLNESS: The patient is an 86-year-old with no bloody stools, no change in bowel movements and no new pain. Family history negative for colon cancer. The patient has history of colon cancer and is in need of follow up screening colonoscopy. PAST MEDICAL HISTORY: She has had stage III colon cancer in the past, hypertension, atrial fibrillation, history of myocardial infarction in the past. Arthritis and anemia in the past. PAST SURGICAL HISTORY: Hysterectomy, bunion, colonoscopy, right colectomy with anastomosis in the past. History of coronary stent in the past. MEDICATIONS: PreserVision, amlodipine, atorvastatin, Eliquis, atenolol, enalapril, vitamin D3, aspirin, vitamin B12, Imodium A-D. ALLERGIES: ACETAMINOPHEN. HYDROCODONE. TRAMADOL. FAMILY HISTORY: Hypertension, coronary artery disease. SOCIAL HISTORY: No smoking or alcohol abuse. REVIEW OF SYSTEMS: Fourteen systems reviewed. No chest pain or palpitations. Other systems negative or noncontributory as above and per preadmission questionnaire. PHYSICAL EXAMINATION: GENERAL: No acute distress. HEENT: Sclerae nonicteric. NECK: No JVD. CHEST: Equal excursion, nonlabored breathing. CVS: Regular irregular. ABDOMEN: Soft, nontender. EXTREMITIES: No significant edema. NEURO: Alert, oriented, moving extremities symmetrically. RECTAL: Deferred timed to endoscopy exam. PSYCH: Appropriate mood and affect. IMPRESSION: Personal history of colon cancer in need of follow up screening colonoscopy. I feel she is a candidate. General risk of bleeding or infection, risk of bowel injury or perforation, risk of missed or nondiagnosis or incomplete exam, possibly requiring barium enema, other studies or procedures, general risk of anesthesia or sedation, risk of bowel prep or sedation but not limited to, consent obtained. Will proceed with outpatient colonoscopy under MAC anesthesia.
[2021-12-06] MEDS ORDERED: Lactated Ringers 1,000 ML IV ONE (08:39)
[2021-12-06] MEDS ORDERED: Lactated Ringers 1,000 ML IV SCH (09:00)
[2021-12-06] MEDS ORDERED: DIPRIVAN 200 MG/20 ML IV ONE (11:23)
[2021-12-06 12:24] VITALS: PULSE 76
[2021-12-06] MEDS ORDERED: Sodium Chloride 0.9% 10 ML FLUSH Syringe PORT FLUSH PRN (12:57)
[2021-12-06 12:58] VITALS: BP 132/86; O2SAT 96
--- NOTE | 2021-12-06 15:20 | OP ---
SURGERY DATE/TIME: 12/06/2021 1124 PREOPERATIVE DIAGNOSIS: History of colon cancer, need for follow up screening colonoscopy. POSTOPERATIVE DIAGNOSES: 1) Patent anastomosis. No evidence of recurrence at anastomotic site. 2) Two polyps ascending colon. 3) Mild diverticulosis. PROCEDURES: 1) Colonoscopy to terminal ileum. 2) Hot snare polypectomy ascending colon with hot biopsy polypectomy small residual piece of snare polyp. 3) Hot biopsy polypectomy smaller adjacent nearby polyp descending colon. SURGEON: Dr. Juventino Gillis. ANESTHESIA: MAC. ESTIMATED BLOOD LOSS: Minimal. INDICATIONS: As noted above. Risks and benefits explained in detail but not limited to and consent obtained. DESCRIPTION OF PROCEDURE AND FINDINGS: The patient is taken to the endoscopy room. MAC anesthesia induced. After official time out and no disagreement with planned procedure, digital rectal exam did not reveal any rectal masses. Video colonoscope inserted and passed up through the somewhat tortuous sigmoid, descending, transverse colon around to the ileocolonic anastomotic site at the ileum. Anastomosis patent with no signs of recurrence. Prep overall is fair. A large amount of liquidy semisolid stool limited the exam for very small lesions. The scope is slowly and carefully withdrawn over the next 10 minutes. Descending colon there was a 3.5 mm polyp removed with hot snare polypectomy. There was one little, tiny residual piece left after the snare removed with biopsy forceps. Hot biopsy also removed a little 2 mm nearby polyp. Good hemostasis was noted. Otherwise she had a few diverticula. There were no signs of any large polyps, masses or any other obstructing lesion. The patient tolerated the procedure well. There was no family out in the waiting area to discuss the findings with. I will see her back in the office in the next week or two to go over the results.
== END 2021-12-06 13:09 | disposition home or self-care (01) ==
LOC: SDC 08:25
PROVIDERS: ATTEND Surgery
DX: Z08 Encounter for follow-up examination after completed treatment for malignant neoplasm (principal); Z85.038 Personal history of other malignant neoplasm of large intestine; D12.4 Benign neoplasm of descending colon; K57.90 Diverticulosis of intestine, part unspecified, without perforation or abscess without bleeding
CPT/HCPCS: 99100; J1642; J2704

== ENCOUNTER 2022-12-23 22:33 | Emergency (ER) | payer MEDICARE ==
--- NOTE | 2022-12-23 22:46 | ERPHSYRPT ---
- History of Present Illness Time Seen by Provider: 12/23/22 22:46 Source: patient, family Exam Limitations: no limitations Physician History: This is an 87-year-old white female patient of Dr. Jack who at 8 PM prior to arrival in was on a swing at her home property. She stopped the swinging and then stood up to go home but became very lightheaded and dizzy when she stood up. When she sat back down, the dizziness and lightheadedness subsided. After a bit of time she got up again and took very small steps and was able to get home without dizziness. She denies head injury. She denies headache. She denies visual changes. She denies chest pain and she denies shortness of breath. She has had no nausea vomiting or diarrhea. She has had no fevers or cough. She has never had anything like this before. Patient has a history of hyperlipidemia, hypertension, atrial fibrillation (taking Eliquis and beta- maicol). The dizziness has subsided somewhat but she does feel as though she might fall forward when standing upright. Again, the symptoms resolve when lying supine. Timing/Duration: today Deficits: decrease ability to stand, decrease ability to walk Baseline/Normal Cognition: alert 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 Current Cognition: alert 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 Baseline Gait: walks w/o assistance Associated Symptoms: No nausea, No vomiting, No weakness, No seizures, No vision changes, No chest pain Allergies/Adverse Reactions: acetaminophen [From [place]] Adverse Reaction (Severe, Verified 12/23/22 22:40) hydrocodone [From [place]] Adverse Reaction (Severe, Verified 12/23/22 22:40) confusion Opioids - Morphine Analogues Adverse Reaction (Severe, Verified 12/23/22 22:40) Rapid Heart Beat "personality changes,confused" tramadol Adverse Reaction (Severe, Verified 12/23/22 22:40) confusion Home Medications: Atenolol 50 mg [Tenormin 50 mg] 100 mg PO DAILY 09/03/18 [History] Atorvastatin Calcium [Lipitor] 80 mg PO DAILY 10/26/18 [History] Amlodipine Besylate [Norvasc] 5 mg PO DAILY 01/02/19 [History] Nitroglycerin 0.4 mg Tablet [Nitrostat 0.4 MG Tablet] 1 tab Q5MIN PRN MR X 3 PRN 12/02/21 [History] Omeprazole 20 mg PO DAILY 12/02/21 [History] Hx Tetanus, Diphtheria Vaccination/Date Given: Yes Hx Influenza Vaccination/Date Given: Yes Hx Pneumococcal Vaccination/Date Given: Yes Travel Risk - International Travel Have you traveled outside of the country in past 3 weeks: No - Coronavirus Screening Are you exhibiting any of the following symptoms?: No Close contact with a COVID-19 positive Pt in past 14-21 Days: No - Review of Systems Constitutional: No Symptoms Eyes: No Symptoms Ears, Nose, & Throat: No Symptoms Respiratory: No Symptoms Cardiac: No Symptoms Abdominal/Gastrointestinal: No Symptoms Genitourinary Symptoms: No Symptoms Musculoskeletal: No Symptoms Skin: No Symptoms Neurological: Dizziness Psychological: No Symptoms Endocrine: No Symptoms Hematologic/Lymphatic: No Symptoms Immunological/Allergic: No Symptoms All Other Systems: Reviewed and Negative - Past Medical History Pertinent Past Medical History: Yes Neurological History: No Pertinent History ENT History: Cataracts Cardiac History: Arrhythmia, High Cholesterol, Hypertension, Myocardial Infarction ([place]) Respiratory History: No Pertinent History Endocrine Medical History: No Pertinent History Musculoskeletal History: Fractures, Osteoporosis, Other GI Medical History: Colorectal Cancer, GERD History: No Pertinent History Psycho-Social History: No Pertinent History Female Reproductive Disorders: No Pertinent History Other Medical History: Hx of Afib. Hx of colon cancer. Pt finished chemo in May, 2019. Right hip repair with pins/screws. - Past Surgical History Past Surgical History: Yes Neuro Surgical History: No Pertinent History Cardiac: Cardiac Catheterization, Cardiac Stent Respiratory: No Pertinent History Gastrointestinal: Colon Resection Genitourinary: No Pertinent History Musculoskeletal: Orthopedic Surgery Female Surgical History: Hysterectomy Other Surgical History: Hx of Right hip repair with screws. Colon resection, Cardiac cath with stent replacement, port placed, - Social History Smoking Status: Former smoker Exposure to second hand smoke: No Drug Use: none Patient Lives Alone: Yes - Nursing Vital Signs Nursing Vital Signs: Initial Vital Signs Pulse Rate 72 12/23/22 22:27 Respiratory Rate 20 12/23/22 22:27 Blood Pressure 149/106 12/23/22 22:27 O2 Sat by Pulse Oximetry 94 L 12/23/22 22:27 Pain Scale Pain Intensity 0 - [place] Coma Scale Best Eye Response ([place]): (4) open spontaneously Best Verbal Response ([place]): (5) oriented Best Motor Response ([place]): (6) obeys commands Jaky Total: 15 - Physical Exam General Appearance: no apparent distress, alert, anxiety Eye Exam: bilateral eye: normal inspection, PERRL, EOMI Ears, Nose, Throat Exam: normal ENT inspection, moist mucous membranes Neck Exam: normal inspection, non-tender, supple, full range of motion Respiratory: normal breath sounds, lungs clear, airway intact, No chest tenderness, No respiratory distress Cardiovascular: regular rate/rhythm, normal heart sounds, normal peripheral pulses Gastrointestinal: soft, normal bowel sounds, No tenderness Pelvic Exam: not done Rectal Exam: not done Back Exam: normal inspection, normal range of motion, No CVA tenderness, No ve rtebral tenderness Extremity Exam: normal inspection, normal range of motion, pelvis stable Mental Status: alert, 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, 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 Exam: normal hearing, normal speech, PERRL Coordination/Gait: normal finger to nose Skin Exam: normal color, warm, dry SpO2 Interpretation: normal SpO2: 97 O2 Delivery: Room Air - Course Nursing assessment & vital signs reviewed: Yes EKG Interpreted by Me: RATE (71), A-fib, Other (No acute ischemic changes on today's twelve-lead EKG.) Ordered Tests: Active Orders 24 hr Category Date Time Status Book Jogger STAT Care 12/23/22 22:47 Active EKG-ER Only STAT Care 12/23/22 22:46 Active IV Insertion STAT Care 12/23/22 22:46 Active POCT Glucose Check STAT Care 12/23/22 22:46 Active Pulse Oximetry (ED) STAT Care 12/23/22 22:46 Active HEAD WITHOUT CONTRAST [CT] Stat Exams 12/23/22 22:47 Completed CULTURE,URINE Stat Lab 12/24/22 02:00 Received POCT GLUCOSE Stat Lab 12/23/22 23:46 Completed TROPONIN Q4H Lab 12/24/22 00:01 Completed TROPONIN Q4H Lab 12/24/22 05:00 Ordered TROPONIN Q4H Lab 12/24/22 09:00 Ordered UA W/RFX UR CULTURE Stat Lab 12/24/22 02:00 Completed Medication Summary Discontinued Medications Generic Name Dose Route Start Last Admin Trade Name Freq PRN Reason Stop Dose Admin Meclizine HCl 25 mg 12/24/22 01:01 12/24/22 01:38 Meclizine Hcl 25 Mg Tablet PO 12/24/22 01:02 25 mg STAT ONE Administration Meclizine HCl Confirm 12/24/22 01:38 Meclizine Hcl 25 Mg Tablet Administered 12/24/22 01:39 Dose 25 mg .ROUTE .[facility] Lab/Rad Data: Laboratory Result Diagrams 12/23/22 00:15 12/23/22 00:15 Laboratory Results 12/24/22 12/24/22 12/23/22 Range/Units 02:00 00:01 23:46 WBC (4.0-10.5) x10^3/uL RBC (4.1-5.4) x10^6/uL Hgb (12.0-16.0) g/dL Hct (35-47) % MCV (78-100) fL MCH (26-32) pg MCHC (32-36) g/dL RDW (11.5-14.0) % Plt Count (150-450) x10^3/uL MPV (7.5-11.0) fL Gran % (36.0-66.0) % Immature Gran % (Auto) (0.00-0.4) % Nucleat RBC Rel Count (0.00-0.1) % Eos # (Auto) (0-0.5) x10^3/uL Immature Gran # (Auto) (0.00-0.03) x10^3u/L Absolute Lymphs (auto) (1.0-4.6) x10^3/uL Absolute Monos (auto) (0.0-1.3) x10^3/uL Absolute Nucleated RBC (0.00-0.01) x10^3u/L Lymphocytes % (24.0-44.0) % Monocytes % (0.0-12.0) % Eosinophils % (0.00-5.0) % Basophils % (0.0-0.4) % Absolute Granulocytes (1.4-6.9) x10^3/uL Basophils # (0-0.4) x10^3/uL Sodium (137-145) mmol/L Potassium (3.5-5.1) mmol/L Chloride (98-107) mmol/L Carbon Dioxide (22-30) mmol/L Anion Gap (5-15) MEQ/L BUN (7-17) mg/dL Creatinine (0.52-1.04) mg/dL Estimated GFR ML/MIN Glucose (74-106) mg/dL POC Glucometer 92 (74 to 106) mg/dL Calcium (8.4-10.2) mg/dL Total Bilirubin (0.2-1.3) mg/dL AST (14-36) U/L ALT (0-35) U/L Alkaline Phosphatase (38-126) U/L Troponin I < 0.012 (0.000-0.034) ng/mL Serum Total Protein (6.3-8.2) g/dL Albumin (3.5-5.0) g/dL Urine Color Yellow (Yellow) Urine Appearance Clear (Clear) Urine pH 7.0 (4.6-8.0) Ur Specific [place] 1.015 (1.005-1.030) Urine Protein Trace A (Negative) Urine Glucose (UA) Negative (Negative) mg/dL Urine Ketones Negative (Negative) Urine Blood Negative (Negative) Urine Nitrite Negative (Negative) Urine Bilirubin Negative (Negative) Urine Urobilinogen 1.0 A (0.2) mg/dL Ur Leukocyte Esterase Trace A (Negative) U Hyaline Cast (Auto) NONE SEEN (0-2) /LPF Urine Microscopic RBC 0-2 (0-5) /HPF Urine Microscopic WBC 6-10 A (0-5) /HPF Ur Epithelial Cells None Seen (None Seen) /HPF Urine Bacteria None Seen (None Seen) /HPF Urine Culture Reflexed YES (NO) 12/23/22 12/23/22 Range/Units 00:15 00:15 WBC 7.4 (4.0-10.5) x10^3/uL RBC 4.76 (4.1-5.4) x10^6/uL Hgb 14.5 (12.0-16.0) g/dL Hct 44.8 (35-47) % MCV 94.1 (78-100) fL MCH 30.5 (26-32) pg MCHC 32.4 (32-36) g/dL RDW 13.4 (11.5-14.0) % Plt Count 249 (150-450) x10^3/uL MPV 10.1 (7.5-11.0) fL Gran % 52.9 (36.0-66.0) % Immature Gran % (Auto) 0.1 (0.00-0.4) % Nucleat RBC Rel Count 0.0 (0.00-0.1) % Eos # (Auto) 0.23 (0-0.5) x10^3/uL Immature Gran # (Auto) 0.01 (0.00-0.03) x10^3u/L Absolute Lymphs (auto) 2.71 (1.0-4.6) x10^3/uL Absolute Monos (auto) 0.46 (0.0-1.3) x10^3/uL Absolute Nucleated RBC 0.00 (0.00-0.01) x10^3u/L Lymphocytes % 36.6 (24.0-44.0) % Monocytes % 6.2 (0.0-12.0) % Eosinophils % 3.1 (0.00-5.0) % Basophils % 1.1 (0.0-0.4) % Absolute Granulocytes 3.91 (1.4-6.9) x10^3/uL Basophils # 0.08 (0-0.4) x10^3/uL Sodium 140 (137-145) mmol/L Potassium 4.0 (3.5-5.1) mmol/L Chloride 106 (98-107) mmol/L Carbon Dioxide 24 (22-30) mmol/L Anion Gap 14.3 (5-15) MEQ/L BUN 20 H (7-17) mg/dL Creatinine 0.86 (0.52-1.04) mg/dL Estimated GFR > 60.0 ML/MIN Glucose 95 (74-106) mg/dL POC Glucometer (74 to 106) mg/dL Calcium 8.9 (8.4-10.2) mg/dL Total Bilirubin 0.50 (0.2-1.3) mg/dL AST 29 (14-36) U/L ALT 18 (0-35) U/L Alkaline Phosphatase 63 (38-126) U/L Troponin I (0.000-0.034) ng/mL Serum Total Protein 7.3 (6.3-8.2) g/dL Albumin 4.1 (3.5-5.0) g/dL Urine Color (Yellow) Urine Appearance (Clear) Urine pH (4.6-8.0) Ur Specific [place] (1.005-1.030) Urine Protein (Negative) Urine Glucose (UA) (Negative) mg/dL Urine Ketones (Negative) Urine Blood (Negative) Urine Nitrite (Negative) Urine Bilirubin (Negative) Urine Urobilinogen (0.2) mg/dL Ur Leukocyte Esterase (Negative) U Hyaline Cast (Auto) (0-2) /LPF Urine Microscopic RBC (0-5) /HPF Urine Microscopic WBC (0-5) /HPF Ur Epithelial Cells (None Seen) /HPF Urine Bacteria (None Seen) /HPF Urine Culture Reflexed (NO) - Progress Progress: improved, re-examined Progress Note: 12/24/22 00:48 This patient's medical issue is 1 of moderate complexity. The level of complexity in the work-up performed is based on review of the patient's past medical history, review of the patient's medication list, review of the patien t's drug allergy list, history of present illness and physical findings on examination. Work-up in this patient includes intravenous line placement, twelve-lead EKG, CBC, CMP, urinalysis and CT scan of the head without contrast. 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 There is microvascular ischemic changes with senile changes. There is no acute intracranial abnormalities present. Counseled pt/family regarding: lab results, diagnosis, need for follow-up, rad results Medical Desision Making - Independent Historian Additional History obtained from: Child - Diagnostic Testing Diagnostic test were ordered, analyzed, and reviewed by me: Yes Radiological Interpretation: Reviewed by me, Teleradiologist Report - Risk of complications The pt has a mod risk of morbidity or mortality based on: Need for prescription drug management - Departure Departure Disposition: Home Clinical Impression: Dizziness Condition: Stable Critical Care Time: No Referrals: MINI GAMINO MD [NON-STAFF PHY W/O PRIVILEGES] - Follow up/PCP as directed Additional Instructions: Drink plenty of fluids. Take your antibiotics as prescribed. Take your other medications as prescribed. Follow-up with your primary care provider on 12/26/2022 for further evaluation and management. Prescriptions: Meclizine HCl 25 mg [Antivert 25 mg] 25 mg PO Q8H PRN #10 tablet PRN Reason: Dizziness Cephalexin Mh 500 mg [Keflex 500 mg] 500 mg PO TID #21 cap
[2022-12-23 22:47] VITALS: TEMP 97.1
--- NOTE | 2022-12-24 00:05 | XRAY ---
CLINICAL HISTORY:Dizziness COMPARISON:None. TECHNIQUE:Axial non-contrast CT scan of the brain was performed from the skull base to the high parietal region.; Coronal and sagittal reconstructions were also obtained. 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 Resultant mild ex-vacuo dilatation of right lateral ventricle noted. There are hypodense areas noted in the periventricular and subcortical white matter bilaterally, suggestive of microvascular ischemic changes. The ventricular system, cortical sulci and basal cisterns are prominent consistent with senile changes. The rest of visualized brain parenchyma shows a normal appearance. No midline shifts or deformity. No intracerebral or extra axial hematoma. Normal CT appearance of the posterior fossa structures namely the cerebellar hemispheres, brainstem and cerebellar peduncles. The IACs are unremarkable. The cerebello-pontine angles are clear. The osseous structures in the skull base are unremarkable. No definite calvarium fractures. The scanned paranasal sinuses are clear. IMPRESSION: 1. 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 2. Microvascular ischemic changes and senile changes. 3. No CT delineable acute abnormality is detected in the brain. Electronically Signed by: Adan Espinal MD. (12/23/2022 23:04:49 HYPNOTHERAPIST)
[2022-12-24 00:18] LABS: Absolute Neutrophil Ct (ANC) 3.91 x10^3/uL (1.4-6.9); BASOPHIL % 1.1 % (0.0-0.4); Basophil (Absolute #) 0.08 x10^3/uL (0-0.4); Eosinophil % 3.1 % (0.00-5.0); Eosinophil (Absolute #) 0.23 x10^3/uL (0-0.5); Hematocrit 44.8 % (35-47); Hemoglobin 14.5 g/dL (12.0-16.0); IMMATURE GRAN # 0.01 x10^3u/L (0.00-0.03); IMMATURE GRAN % 0.1 % (0.00-0.4); Lymphocyte (Absolute #) 2.71 x10^3/uL (1.0-4.6); Lymphocytes % 36.6 % (24.0-44.0); Mean Cell Volume 94.1 fL (78-100); Mean Corpuscular Hemoglobin 30.5 pg (26-32); Mean Corpuscular Hgb Concent. 32.4 g/dL (32-36); Mean Platelet Volume 10.1 fL (7.5-11.0); Monocyte (Absolute #) 0.46 x10^3/uL (0.0-1.3); Monocytes % 6.2 % (0.0-12.0); Neutrophil % 52.9 % (36.0-66.0); Platelet Count 249 x10^3/uL (150-450); Red Blood Count 4.76 x10^6/uL (4.1-5.4); Red Cell Distribution Width 13.4 % (11.5-14.0); White Blood Count 7.4 x10^3/uL (4.0-10.5)
[2022-12-24 00:31] LABS: ALBUMIN 4.1 g/dL (3.5-5.0); ALKALINE PHOSPHATASE 63 U/L (38-126); ANION GAP 14.3 MEQ/L (5-15); BLOOD UREA NITROGEN 20 mg/dL (7-17); CHLORIDE 106 mmol/L (98-107); Calcium 8.9 mg/dL (8.4-10.2); Carbon Dioxide 24 mmol/L (22-30); Creatinine 1 0.86 mg/dL (0.52-1.04); EST GLOMERULAR FILTRATION RATE > 60.0 ML/MIN; Glucose 95 mg/dL (74-106); SGOT/AST 29 U/L (14-36); SGPT/ALT 18 U/L (0-35); SODIUM 140 mmol/L (137-145); Total Protein 7.3 g/dL (6.3-8.2)
[2022-12-24] MEDS ORDERED: ANTIVERT 25 MG PO ONE (01:01)
[2022-12-24] MEDS ORDERED: ANTIVERT 25 MG ONE (01:38)
[2022-12-24 02:02] VITALS: BP 125/75; RESP 27
[2022-12-24 02:21] LABS: Appearance Clear (Clear); Bacteria None Seen /HPF (None Seen); Bilirubin Negative (Negative); Blood Negative (Negative); Epithelial Cells None Seen /HPF (None Seen); Glucose, Urine Negative (Negative); Hyaline Casts NONE SEEN /LPF (0-2); Ketones Negative (Negative); Leukocyte Esterase Trace (Negative); Nitrite Negative (Negative); Protein,Urine Dip Trace (Negative); RBC 0-2 /HPF (0-5); Specific Gravity 1.015 (1.005-1.030)
[2022-12-24 02:47] LABS: ADD URINE CULTURE? YES (NO)
[2022-12-24] MEDS ORDERED: KEFLEX 500 MG PO ONE (02:53)
[2022-12-24] MEDS ORDERED: KEFLEX 500 MG ONE (03:00)
[2022-12-24 03:52] VITALS: PULSE 62; O2SAT 98
== END 2022-12-24 03:40 | disposition home or self-care (01) ==
LOC: ED 22:33
DX: R42 Dizziness and giddiness (principal); E78.5 Hyperlipidemia, unspecified; I10 Essential (primary) hypertension; Z79.01 Long term (current) use of anticoagulants; Z79.899 Other long term (current) drug therapy
CPT/HCPCS: 36415; 70450; 80053; 81001; 82947; 84484; 85025; 87086; 93005; 93041; 94760; 99284; A9270-GY